=== PATIENT | female | born 1980 | race Caucasian/White ===

== ENCOUNTER 2021-02-02 15:45 | Outpatient (REF) | payer OTHER, SELFPAY ==
--- NOTE | ~2021-02-02 | XR_ITS ---
EXAMINATION: XR FOOT, RIGHT CLINICAL INFORMATION: Foot pain COMPARISON: None TECHNIQUE: 3 views of the right foot. FINDINGS: Bones have normal alignment. No fracture or subluxation. Moderate-sized plantar calcaneal enthesophyte. Small osteophytes at mildly degenerated second, third and fourth tarsometatarsal joints. Also, there appears to be subchondral sclerosis and subchondral cystic change at the second tarsometatarsal joint. 15 degrees of metatarsus primus varus and 45 degrees of hallux valgus deformity. Soft tissue prominence medial to the great toe metatarsal head with underlying subcortical cystic change of the metatarsal head. No osseous erosions. Mild deformity of the head of the proximal pharynx of the third toe might be sequela of remote minor trauma. XR/XR foot RT min 3V IMPRESSION: * No acute osseous injury in the right foot. 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 * Moderate-sized plantar calcaneal enthesophyte.
== END 2021-02-02 15:46 | disposition home or self-care (01) ==
LOC: HO.XRAY 15:45
PROVIDERS: PCP Internal Medicine; Visit Provider Internal Medicine
DX: M79.671 Pain in right foot (principal)
CPT/HCPCS: 73630

== ENCOUNTER 2021-02-05 12:15 | Outpatient (REF) | payer OTHER, SELFPAY ==
--- NOTE | ~2021-02-05 | MM_ITS ---
EXAMINATION: MM DIAGNOSTIC DIGITAL BREAST TOMOSYNTHESIS, BILATERAL Targeted right breast ultrasound CLINICAL INFORMATION: Right breast lump The lifetime risk of breast cancer based on the Tyrer-Cuzick Model is 13.9%. COMPARISON: Mammography: None TECHNIQUE: Digital breast tomosynthesis is performed in both the craniocaudal and mediolateral oblique views along with computer-aided detection (CAD). Synthesized 2D images are generated from the tomosynthesis. Targeted right breast ultrasound FINDINGS: There are scattered areas of fibroglandular density (ACR BI-RADS breast composition Category b). There are no significant masses, abnormal calcifications, or other abnormalities. Targeted ultrasound evaluation to region of palpable abnormality upper outer aspect of the right breast did not demonstrate any abnormal cystic or solid mass. No region of abnormal distal sound shadowing is present. Results are discussed with the patient at time of visit. MM/MM tomosynthesis diagnostic BI IMPRESSION: No specific mammographic or ultrasound findings to suggest malignancy. ASSESSMENT: BI-RADS 1: Negative RECOMMENDATION: Routine annual mammography screening due in 12 months. Clinical follow-up for palpable abnormality. This patient's information was entered into a reminder system with a target due date for their next mammogram.
--- NOTE | ~2021-02-05 | US_ITS ---
EXAMINATION: US DIAGNOSTIC ULTRASOUND BREAST, RIGHT CLINICAL INFORMATION: Palpable abnormality. COMPARISON: Mammography of same day. TECHNIQUE: Ultrasound of the breast is performed with real-time short scale imaging and color Doppler. FINDINGS: There is no focal suspicious finding. There is no solid mass, architectural abnormality, duct ectasia, or edema in the soft tissue planes. Results are discussed with the patient at time of visit. US/US breast RT limited IMPRESSION: No specific mammographic or ultrasound findings to suggest malignancy. ASSESSMENT: BI-RADS 1: Negative RECOMMENDATION: Routine annual mammography screening due in 12 months. This patient's information was entered into a reminder system with a target due date for their next mammogram.
== END 2021-02-05 12:16 | disposition home or self-care (01) ==
LOC: HO.MAMMO 12:15
PROVIDERS: PCP Internal Medicine; Visit Provider Internal Medicine
DX: N63.11 Unspecified lump in the right breast, upper outer quadrant (principal)
CPT/HCPCS: 76642; 77062; 77066

== ENCOUNTER 2024-05-14 08:10 | Outpatient (AMB) | payer OTHER, SELFPAY ==
--- OUTSIDE RECORDS SUMMARY | 2024-05-14 08:14 | XMS_ITS ---
Author Organization [facility] Address [address] [place] [id number] Care Team Providers Care Registered Vascular Technologist (Rvt) Name Role Phone [facility] Primary Care Provider [phone] ALLERGIES Allergen (clinical drug ingredient) Drug/Non Drug Allergy documented on EMR Reaction Allergy Type Onset Date Status Seasonal (uncoded) Cold Like Symptoms Allergy Active REASON FOR VISIT f/u meds, labs SOCIAL HISTORY Tobacco Use: Social History Observation Description Date Details (start date - stop date) Former Smoker 05/15/2007 - 05/15/2008 Sex Assigned At : Social History Observation Description Sex Assigned At Unknown Tobacco Use/Smoking Question Answer Notes Tobacco use: former smoker When did you start smoking? 05/15/2007 When did you stop smoking? 05/15/2008 How long has it been since you last smoked? > 10 years Additional Findings: Tobacco Non-User Ex-light c igarette smoker (1-9/day) Section Notes: Lives in [place] with [place], her EX and his mother. Encounters Encounter Location Date Provider Diagnosis [address] [id number] 03/19/2024 [facility] PLAN OF TREATMENT Next Appt Details Provider Name:SOU[facility] Hardin, 05/23/2024 08:45:00 AM, [address] [place] [address] [place], [phone], Provider Name:SOU[facility] Hardin, 07/03/2024 08:45:00 AM, [address] [place] [address] [place], [phone], Progress Notes * NISSA MCCARTHY: [birth year] (43 yo F)Acc No.[id number]:03/19/2024 Progress Note Patient:??BASIL MCCARTHY Provider:??South Calderon DNP :1980?Age:43 Y?Sex:Fe male Date:03/19/2024 Phone: Address:[id number] Subjective: * Chief Complaints: * ?1. F/u meds, labs. * HPI: ?Patient Care Team:?Tool Room Attendant:??[facility], Randall Hinds.? Providers/Specialists: Dentist - [facility] in [place]. * Medical History:??Hay fever, Anxiety, Chicken pox as a child, Depression, Fractured left ankle, GERD, Migraine headaches, Pneumonia, possible Thyroid issues. * Manager Monitoring History:?Menstrual history: ?LMP:??08/26/2023 ?Age of Menarche:??12 ?Periods :??every month, normal blood loss, lasts 4 days.?Last pap smear date??2011 neg per pt- due and obtained today 08/12/2023.?Last mammogram date??2020 neg per pt [facility]- referral sent.?? * OB History:? History:?Total pregnancies:??1 ?Total living children??1.?? * Surgical History:?? 2011, tonsillectomy 1986. * Family History:??Father: ali ve, hypertension, , type 2 diabetes mellitus, melanoma.??Mother: alive, type 2 diabetes mellitus.??Paternal Grandfather: , [place].??Paternal Grandmother: , [place].??Maternal Grandfather: 86 yrs, Alzheimer's dementia, melanoma.??Maternal Grandmother: 93 yrs, hypertension, , type 2 diabetes mellitus, colon cancer.?? * Social History:?Tobacco Use:?Tobacco Use/Smoking?Tobacco use:??former smoker ?When did you start smoking???05/15/2007 ?When did you stop smoking???05/15/2008 ?How long has it been since you last smoked???> 10 years ?Additional Findings: Tobacco Non-User??Ex-light cigarette smoker (1-9/day) ?Drugs/Alcohol:?Drugs?Have you used drugs other than those for medical reasons in the past 12 months???No ?Do you smoke marijuana?: Admits, vape and edibles. ?Do you drink alcohol?: Socially. ?Lives in [place] with Daughter, her EX and his mother. * Allergies:??Seasonal: Cold L chet Symptoms - Allergy. Objective: Assessment: Plan: * Treatment: * Preventive Medicine:?Last CPE: 08/02/2023 @ [facility] Colonoscopy: 2013 [facility] had fissures repaired Endoscopy: No Covid Vac: Yes Boosters No Flu Vac: No. * Billing Information: * Visit Code:?? * Procedure Codes:?? * Sign off status: Pending * Provider:??South Calderon DNP Date:??1 05/19/2023 History and Physical Notes * HPI (History of Present Illness) Category Sub-Category Detail Notes Category Not es Patient Care Team Tool Room Attendant: [facility] Providers/Special ists: Dentist - [facility] [place]
--- OUTSIDE RECORDS SUMMARY | 2024-05-14 08:14 | XMS_ITS | Patient Health Record ---
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 Name Role Phone PHYLICIA CALDERON Primary Care Provider ALLERGIES Allergen (clinical drug ingredient) Drug/Non Drug Allergy documented on EMR Reaction Allergy Type Onset Date Status Seasonal (uncoded) Cold Like Symptoms Allergy Active RESULTS Component Value Reference Range Notes CBC (COMPLETE BLOOD COUNT) W ITH DIFF Reviewed date:06/20/2023 03:08:15 PM Interpretation: Performing Lab:Testing performed or reported by [facility], a Service of [facility], [address] [place] [address] Keith Buck MD, E Mail System Administrator IA# [id number] Notes/Report: WBC 5.5 (4.0-11.0) K/MM3 RBC 4.27 (4.20-5.40) M/MM3 HGB 12.6 (11.7-15.5) GM/DL HCT 36.6 (35.7-45.8) % MCV 85.7 (80.0-100.0) FL MCH 29.5 (27.0-34.0) PG MCHC 34.4 (33.0-37.0) g/dL PLT 258 (150-460) K/MM3 RDW-SD 41.5 (<47.0) FL MPV 10.2 (9.4-12.4) FL AUTOMATED NRBC 0.0 ABS. NRBC 0.0 NEUT # 3.7 (1.3-7.0) K/MM3 LYMPH # 1.2 (0.8-3.1) K/MM3 MONO# 0.4 (0.4-0.9) K/MM3 EO # 0.2 (0.0-0.4) K/MM3 BASO # 0.0 (0.0-0.1) K/MM3 ABS. IMM GRAN 0.0 NEUT 66.6 (44-76) % LYMPH 22.5 (15-43) % MONOCYTE 7.1 (4.5-10.5) % EO 2.7 (0-6) % BASO 0.7 (0-2) % IMM GRAN 0.4 T3, REVERSE Reviewed date:06/25/2023 10:23:16 AM Interpretation: Performing Lab:Testing performed or reported by [facility], a Service of [facility], [address] [place] [id number] Keith Buck MD, E Mail System Administrator CLIA# [id number] Notes/Report: REVERSE T3 18.1 Reference range: 9.2 to 24.1 Unit: ng/dL (NOTE) This test was developed and its performance characteristics determined by [facility]. It has not been cleared or approved by the Food and Drug Administration. Test performed at [address] [address] THYROID PANEL Reviewed date:06/21/2023 01:16:50 PM Interpretation: Performing Lab:Testing performed or reported by [facility], a Service of [facility], [address] [place] [id number] Keith Buck MD, E Mail System Administrator IA# [id number] Notes/Report: FREE T4 1.42 (0.70-1.80) NG/DL TSH 3.02 (0.4-4.2) uIU/mL THINPREP TIS PAP W/REFL HPV mRNA E6/E7 (26344) Reviewed date:08/07/2023 01:29:16 PM Interpretation: Performing Lab:[facility], [facility] [address], [address] [place], [place] [id number] Fabian Marcus MD Notes/Report: NON-FASTING CLINICAL INFORMATION: None g iven LMP: 07/12/2023 PREV. PAP: 2012 PREV. BX: N/A SOURCE: Cervix STATEMENT OF ADEQUACY: Satisfactory for evaluation. Endocervical/transformation zone component absent. INTERPRETATION/RESULT: Cytology Results: Negative for intraepithelial lesion or malignancy. COMMENT: This Pap test has been evaluated with computer assisted technology. WAIST PRESSER: STEPH CASTANO(ASCP) CT screening location: [facility], [place] [address] Slide preparation performed at: [facility], [address] [place] [id number] CLIA No. [id number] COMMENT EXPLANATORY NOTE: The Pap is a screening test for cervical cancer. It is not a diagnostic test and is subject to false negative and false positive results. It is most reliable when a satisfactory sample, regularly obtained, is submitted with relevant clinical findings and history, and when the Pap result is evaluated along with historic and current clinical information. THYROID PEROXIDASE AND THYRO GLOBULIN ANTIBODIES (7260) Reviewed date:02/15/2024 09:18:55 AM Interpretation: Performing Lab:JOSE2, [facility] Sjloorme[address] Stanley StreetMA[address] Thea Gibbs Notes/Report: NON-FASTING; NON-FASTING; NON-FASTING; NON-FASTING; NON-FAST FASTING:YES FASTING: YES THYROGLOBULIN ANTIBODIES 1 < or = 1 IU/mL THYROID PEROXIDASE ANTIBODIES 278 <9 IU/mL THYROID PANEL WITH TSH (7444 ) Reviewed date:02/14/2024 08:08:16 AM Interpretation: Performing Lab:NATALIIA, [facility] Pompurjv[address] Thea Gibbs Notes/Report: NON-FASTING; NON-FASTING; NON-FASTING; NON-FASTING; NON-FAST FASTING:YES FASTING: YES T3 UPTAKE 30 22-35 % T4 (THYROXINE), TOTAL 7.8 5.1-11.9 mcg/dL FREE T4 INDEX (T7) 2.3 1.4-3.8 TSH 5.20 Reference Range > or = 20 Years 0.40-4.50 Ranges First trimester 0.26-2.66 Second trimester 0.55-2.73 Third trimester 0.43-2.91 CARDIO IQ(R) LIPID PANEL (91 716) Reviewed date:02/26/2024 04:36:13 PM Interpretation: Performing Lab:Jonas [facility] [place] [address], [address] [place], [place] [address]DbfevpdctIF[address] Marino Narvaez PhD,[facility] Notes/Report: NON-FASTING; NON-FASTING; NON-FASTING; NON-FASTING; NON-FAST FASTING:YES FASTING: YES CHOLESTEROL, TOTAL 163 <200 mg/dL HDL CHOLESTEROL 72 >49 mg/dL TRIGLYCERIDES 58 <150 mg/dL LDL-CHOLESTEROL 78 <100 mg/dL (calc) Desirable range <100 mg/dL for primary prevention; <70 mg/dL for patients with CHD or diabetic patients with >= 2 CHD risk factors. LDL-C is now calculated using the Nilton-Sosa calculation, which is a validated novel method providing better accuracy than the Friedewald equation in the estimation of LDL-C. Nilton SS et al. EMELIA. 2013;310(19): 0961-7028 (http://education.[employer].com/faq/QEA199) LDL-C is now calculated using the Nilton-Sosa calculation, which is a validated novel method providing better accuracy than the Friedewald equation in the estimation of LDL-C. Nilton SS et al. EMELIA. 2013;310(19): 1212-7591 (http://education.[employer]/faq/REF317) CHOL/HDLC RATIO 2.3 <5.0 calc NON HDL CHOLESTEROL 91 <130 mg/dL (calc) For patients with diabetes plus 1 major ASCVD risk factor, treating to a non-HDL-C goal of <100 mg/dL (LDL-C of <70 mg/dL) is considered a therapeutic option. For patients with diabetes plus 1 major ASCVD risk factor, treating to a non-HDL-C goal of <100 mg/dL (LDL-C of <70 mg/dL) is considered a therapeutic option. IRON, TIBC AND FERRITIN COLLEEN Hillman (5616) Reviewed date:02/14/2024 08:08:16 AM Interpretation: Performing Lab:NL2, [facility] [address] [place], [place] [id number] Thea Gibbs Notes/Report: NON-FASTING; NON-FASTING; NON-FASTING; NON-FASTING; NON-FAST FASTING:YES FASTING: YES IRON, TOTAL 62 40-190 mcg/dL IRON BINDING CAPACITY 347 250-450 mcg/dL (jae c) % SATURATION 18 16-45 % (calc) FERRITIN 29 16-232 ng/mL ALBUMIN, RANDOM URINE W/CREA EMMA (6517) Reviewed date:02/15/2024 09:18:55 AM Interpretation: Performing Lab:NL2, [facility] Hqpqihxp[address] Thea Gibbs Notes/Report: NON-FASTING; NON-FASTING; NON-FASTING; NON-FASTING; NON-FAST FASTING:YES FASTING: YES CREATININE, RANDOM URINE 115 20-275 mg/dL ALBUMIN, URINE 0.3 See Note: mg/dL Reference Range: Reference Range Not established ALBUMIN/CREATININE RATIO, RANDOM URINE 3 <30 mg/g creat The ADA defines abnormalities in albumin excretion as follows: Albuminuria Category Result (mg/g creatinine) Normal to Mildly increased <30 Moderately increased 30-299 Severely increased > OR = 300 The ADA recommends that at least two of three specimens collected within a 3-6 month period be abnormal before considering a patient to be within a diagnostic category. [facility] Kady ([address]) Reviewed date:02/14/2024 08:08:16 AM Interpretation: Performing Lab:2, [facility] Thea Gibbs Notes/Report: NON-FASTING; NON-FASTING; NON-FASTING; NON-FASTING; NON-FAST FASTING:YES FASTING: YES GLUCOSE 91 65-99 mg/dL Fasting reference interval UREA NITROGEN (BUN) 16 7-25 mg/dL CREATININE 0.76 0.50-0.99 mg/dL EGFR 100 > OR = 60 mL/min/1.73m2 BUN/CREATININE RATIO SEE NOTE: 6-22 (calc) Not Reported: BUN and Creatinine are within reference range. SODIUM 136 135-146 mmol/L POTASSIUM 4.0 3.5-5.3 mmol/L CHLORIDE 101 98-110 mmol/L CARBON DIOXIDE 26 20-32 mmol/L CALCIUM 8.9 8.6-10.2 mg/dL PROTEIN, TOTAL 6.5 6.1-8.1 g/dL ALBUMIN 4.4 3.6-5.1 g/dL GLOBULIN 2.1 1.9-3.7 g/dL (calc) ALBUMIN/GLOBULIN RATIO 2.1 1.0-2.5 (calc) BILIRUBIN, TOTAL 0.4 0.2-1.2 mg/dL ALKALINE PHOSPHATASE 95 31-125 U/L AST 10 10-30 U/L ALT 10 6-29 U/L CARDIO IQ(R) DIRECT LDL (917 23) Reviewed date:02/26/2024 04:36:13 PM Interpretation: Performing Lab:Jonas, to-BBB.-[place] [facility], [address], CiiygsyjqBP[address] Marino Narvaez PhD,[facility] Notes/Report: NON-FASTING; NON-FASTING; NON-FASTING; NON-FASTING; NON-FAST FASTING:YES FASTING: YES DIRECT LDL 92 <100 mg/dL Desirable range <100 mg/dL for primary prevention; <70 mg/dL for patients with CHD or diabetic patients with >= 2 CHD risk factors. CARDIO IQ(R) LIPOPROTEIN (a) (81383) Reviewed date:02/26/2024 04:36:13 PM Interpretation: Performing Lab:Jonas, to-BBB.-[facility], [address], ItbujqbkhVY[address] Marino Narvaez PhD,[facility] Notes/Report: NON-FASTING; NON-FASTING; NON-FASTING; NON-FASTING; NON-FAST FASTING:YES FASTING: YES LIPOPROTEIN (a) <10 <75 nmol/L Risk: Optimal <75 nmol/L; Moderate 75-125 nmol/L; High >125 nmol/L. Cardiovascular event risk category cut points (optimal, moderate, high) are based on Serge Saunders [facility] 2017;69:692-711. CBC (INCLUDES DIFF/PLT) (639 9) Reviewed date:02/14/2024 08:08:16 AM Interpretation: Performing Lab:NL2, [facility] Y[address]iewby[address] [facility] Thea Gibbs Notes/Report: NON-FASTING; NON-FASTING; NON-FASTING; NON-FASTING; NON-FAST FASTING:YES FASTING: YES WHITE BLOOD CELL COUNT 6.5 3.8-10.8 Thousand/ uL RED BLOOD CELL COUNT 4.35 3.80-5.10 Million/uL HEMOGLOBIN 13.4 11.7-15.5 g/dL HEMATOCRIT 39.3 35.0-45.0 % MCV 90.3 80.0-100.0 fL MCH 30.8 27.0-33.0 pg MCHC 34.1 32.0-36.0 g/dL For adults, a slight decrease in the calculated MCHC value (in the range of 30 to 32 g/dL) is most likely not clinically significant; however, it should be interpreted with caution in correlation with other red cell parameters and the patient's clinical condition. RDW 13.0 11.0-15.0 % PLATELET COUNT 271 140-400 Thousand/uL MPV 10.5 7.5-12.5 fL ABSOLUTE NEUTROPHILS [phone] cells/uL ABSOLUTE LYMPHOCYTES 4977 682-2590 cells/uL ABSOLUTE MONOCYTES 371 200-950 cells/uL ABSOLUTE EOSINOPHILS 130 15-500 cells/uL ABSOLUTE BASOPHILS 59 0-200 cells/uL NEUTROPHILS 69.1 LYMPHOCYTES 22.3 MONOCYTES 5.7 EOSINOPHILS 2.0 BASOPHILS 0.9 URINALYSIS, COMPLETE (5463) Reviewed date:02/14/2024 08:08:16 AM Interpretation: Performing Lab:NL2, [facility] Lahuhxxq[address] Thea Gibbs Notes/Report: NON-FASTING; NON-FASTING; NON-FASTING; NON-FASTING; NON-FAST FASTING:YES FASTING: YES COLOR YELLOW YELLOW APPEARANCE CLEAR CLEAR SPECIFIC GRAVITY 1.020 1.001-1.035 PH 6.5 5.0-8.0 GLUCOSE NEGATIVE NEGATIVE BILIRUBIN NEGATIVE NEGATIVE KETONES NEGATIVE NEGATIVE OCCULT BLOOD NEGATIVE NEGATIVE PROTEIN NEGATIVE NEGATIVE NITRITE NEGATIVE NEGATIVE LEUKOCYTE ESTERASE NEGATIVE NEGATIVE WBC NONE SEEN < OR = 5 /HPF RBC NONE SEEN < OR = 2 /HPF SQUAMOUS EPITHELIAL CELLS 0-5 < OR = 5 /HPF BACTERIA NONE SEEN NONE SEEN /HPF HYALINE CAST NONE SEEN NONE SEEN /LPF NOTE This urine was analyzed for the presence of WBC, RBC, bacteria, casts, and other formed elements. Only those elements seen were reported. CARDIO IQ(R) HS CRP (92039) Reviewed date:02/26/2024 04:36:13 PM Interpretation: Performing Lab:Jonas, [facility] [facility], [address]Prem[facility] HealthWsfvvcneeNI[address] Marino Narvaez PhD,[facility] Notes/Report: NON-FASTING; NON-FASTING; NON-FASTING; NON-FASTING; NON-FAST FASTING:YES FASTING: YES HS CRP 10.4 <1.0 mg/L Reference Range: Optimal <1.0 mg/L, according to Karri STRONG et al. Endocr Pract.2017;23(Suppl 2):1-87. The AHA/CDC Guidelines recommend hs-CRP ranges for identifying Relative Cardiovascular Risk in patients ages >17 years: <1.0 mg/L Lower Relative Cardiovascular Risk; 1.0-3.0 mg/L Average Relative Cardiovascular Risk; 3.1-10.0 mg/L Higher Relative Cardiovascular Risk. If result is between 3.1 and 10.0 mg/L, consider retesting in 1-2 weeks to exclude a benign transient elevation secondary to infection or inflammation from the baseline CRP value. Persistent elevations of >10.0 mg/L upon retesting may be associated with infection and inflammation. The AHA/CDC recommendations are based on Lou Dong, Harjeet LOWE, et al. Markers of inflammation and cardiovascular disease: application to clinical and public health practice: A statement for healthcare professionals from the Centers for Disease Control and Prevention and the [place] Heart Association. Circulation 2003; 107(3): 499-511. For ages >17 Years: hs-CRP mg/L Risk According to AHA/CDC Guidelines <1.0 Lower relative cardiovascular risk. 1.0-3.0 Average relative cardiovascular risk. 3.1-10.0 Higher relative cardiovascular risk. Consider retesting in 1 to 2 weeks to exclude a benign transient elevation in the baseline CRP value secondary to infection or inflammation. >10.0 Persistent elevation, upon retesting, may be associated with infection and inflammation. Lou Dong, Harjeet LOWE, et al. Markers of inflammation and cardiovascular disease: application to clinical and public health practice: A statement for healthcare professionals from the Centers for Disease Control and Prevention and the [place] Heart Association. Circulation 2003; 107(3): 499-511. CARDIO IQ(R) HEMOGLOBIN A1c (75774) Reviewed date:02/26/2024 04:36:13 PM Interpretation: Performing Lab:Jonas, [facility] [place] [address], [address], [id number] Marino Narvaez PhD,[facility] Notes/Report: NON-FASTING; NON-FASTING; NON-FASTING; NON-FASTING; NON-FAST FASTING:YES FASTING: YES HEMOGLOBIN A1c 4.7 <5.7 % For the purpose of screening for the presence of diabetes: <5.7% is consistent with the absence of diabetes; 5.7-6.4% is consistent with increased risk for diabetes (prediabetes); >= 6.5% is consistent with diabetes. This assay result is consistent with a decreased risk of diabetes. Currently, no consensus exists regarding use of hemoglobin A1c for diagnosis of diabetes in children. According to [place] Diabetes Association (ADA) guidelines, hemoglobin A1c <7.0% represents optimal control in non- diabetic patients. Different metrics may apply to specific patient populations. Standards of Medical Care in Diabetes (ADA). This test was performed on the Akilah erwin c503 platform. Effective 07/18/2023, a change in test platforms from the [place] to the Akilah erwin c503 may have shifted HbA1c results compared to historical results. Based on laboratory validation testing conducted at [facility], the Akilah platform relative to the Torres platform had an average increase in HbA1c value of <=0.3%. This difference is within accepted variability established by the National Glycohemoglobin Standardization Program. Note that not all individuals will have had a shift in their results and direct comparisons between historical and current results for testing conducted on different platforms is not recommended. CARDIO IQ(R) APOLIPOPROTEIN EVAL (16665) Reviewed date:02/26/2024 04:36:13 PM Interpretation: Performing Lab:Jonas, [place] [facility], [address], NcmfcvvvgTC[address] Marino Narvaez PhD,[facility] Notes/Report: NON-FASTING; NON-FASTING; NON-FASTING; NON-FASTING; NON-FAST FASTING:YES FASTING: YES APOLIPOPROTEIN A1 145 >124 mg/dL Risk, Male: Optimal >= 115 mg/dL; High < 115 mg/dL; Risk, Female: Optimal >= 125 mg/dL; High <125 mg/dL; Cardiovascular event risk category cut points (optimal, high) are based on the AMORIS study Terrence Moore et al. J Stars Specialist Med. 2004;255:188-205. APOLIPOPROTEIN B 72 <90 mg/dL Risk: Optimal <90 mg/dL; Moderate 90-119 mg/dL; High >= 120 mg/dL; Cardiovascular event risk category cut points (optimal, moderate, high) are based on National Lipid Association recommendations- Tomlin TA et al. J of Clin Lipid. 2015; 9: 129-169 and Karri PS et al. Endocr Pract. 2017;23(Suppl 2):1-87. APOLIPOPROTEIN B/A1 RATIO 0.50 <0.63 Risk, Male: Optimal <0.77 mg/dL; Moderate 0.77-0.95 mg/dL; High >0.95 mg/dL; Risk, Female: Optimal <0.63 mg/dL; Moderate 0.63-0.78 mg/dL; High >0.78 mg/dL. Cardiovascular event risk category cut points (optimal, moderate, high) are based on the AMORIS study, Chance G et al. J Stars Specialist Med. 2004;255:188-205. CARDIO IQ(R) INSULIN (18314) Reviewed date:02/26/2024 04:36:13 PM Interpretation: Performing Lab:Jonas [place] [facility].-[address], [address] [address]NzrbpnjfnDA[address] Marino Narvaez PhD,[facility] Notes/Report: NON-FASTING; NON-FASTING; NON-FASTING; NON-FASTING; NON-FAST FASTING:YES FASTING: YES INSULIN 13.3 <18.5 uIU/mL VITAMIN B12/FOLATE, SERUM PA LAURA (7065) Reviewed date:02/14/2024 08:08:16 AM Interpretation: Performing Lab:NATALIIA, [facility] [address] [place], [place] [address] Thea Gibbs Notes/Report: NON-FASTING; NON-FASTING; NON-FASTING; NON-FASTING; NON-FAST FASTING:YES FASTING: YES VITAMIN B12 125 076-1572 pg/mL FOLATE, SERUM 13.5 Reference Range Low: <3.4 Borderline: 3.4-5.4 Normal: >5.4 CARDIO IQ(R) VITAMIN D, 25 H YDROXY (80081) Reviewed date:02/26/2024 04:36:13 PM Interpretation: Performing Lab:RIYA [facility]/Marco Antonio Dinero [id number] [facility] , [id number] Selvin Casarez M.D.,PhD Notes/Report: NON-FASTING; NON-FASTING; NON-FASTING; NON-FASTING; NON-FAST FASTING:YES FASTING: YES VITAMIN D, 25-OH, TOTAL 32 30-100 ng/mL Vitamin D, 25-Hydroxy reports concentrations of two common forms, 25-OHD2 and 25-OHD3. 25-OHD3 indicates both endogenous production and supplementation. 25-OHD2 is an indicator of exogenous sources such as diet or supplementation. Therapy is based on measurement of Total 25-OHD, with levels <20 ng/mL indicative of Vitamin D deficiency, while levels between 20 ng/mL and 30 ng/mL suggest insufficiency. Optimal levels are > or = 30 ng/mL. For additional information, please refer to http://education.[employer]/faq/XDH295 (This link is being provided for informational/ educational purposes only.) VITAMIN D, 25-OH, D3 32 This test was developed and its analytical performance characteristics have been determined by [facility] [place], [place]. It has not been cleared or approved by the U.S. Food and Drug Administration. This assay has been validated pursuant to the CLIA regulations and is used for clinical purposes. VITAMIN D, 25-OH, D2 <4 This test was developed and its analytical performance characteristics have been determined by [facility] [place], [place]. It has not been cleared or approved by the U.S. Food and Drug Administration. This assay has been validated pursuant to the CLIA regulations and is used for clinical purposes. METHYLMALONIC ACID (15420) Reviewed date:02/19/2024 08:19:31 AM Interpretation: Performing Lab:RIYA [facility] [id number] [address], [id number] Selvin Casarez M.D.,PhD Notes/Report: NON-FASTING; NON-FASTING; NON-FASTING; NON-FASTING; NON-FAST FASTING:YES FASTING: YES METHYLMALONIC ACID 137 55-335 nmol/L Serum methylmalonic acid (MMA) levels are used to diagnose and monitor several rare inborn errors of metabolism, including methylmalonic aciduria. The enzymatic conversion of MMA to succinic acid requires vitamin B12 (adenosyl-cobalamin) as a cofactor. Serum MMA levels are also used for assessing functional vitamin B12 deficiency. Vitamin B12 is essential for neurodevelopment, particularly early in . Undiagnosed maternal vitamin B12 deficiency may be associated with adverse / outcomes, such as neural tube defects and intrauterine growth restriction. [facility] utilized Multi-Modal Decomposition (MMD) analysis to establish first and second trimester- specific MMA reference intervals in , as given below: MMA, First trimester (<13 wks gestation): 58-167 nmol/L MMA, Second trimester (13-23 wks gestation): 63-241 nmol/L This test was developed and its analytical performance characteristics have been determined by [facility]. It has not been cleared or approved by the FDA. This assay has been validated pursuant to the CLIA regulations and is used for clinical purposes. CARDIO IQ(R) FIBRINOGEN ANTI GEN, NEPHELOMETRY (35073) Reviewed date:02/26/2024 04:36:13 PM Interpretation: Performing Lab:[place], [place] [facility] [facility], [address]Premier HealthVwsuyywukFJ[address] Marino Narvaez PhD,[facility] Notes/Report: NON-FASTING; NON-FASTING; NON-FASTING; NON-FASTING; NON-FAST FASTING:YES FASTING: YES FIBRINOGEN ANTIGEN, NEPHELOMETRY 377 180-350 mg/dL Risk: Optimal <350 mg/dL; High >=350 mg/dL. Reference Range: 180-350 mg/dL. Adult cardiovascular event risk category cut points (optimal, moderate, high) are based on Siemens BN II and BN ProSpec(TM) System package insert. T3 REVERSE, LC/MS/MS (26329) Reviewed date:02/26/2024 04:36:13 PM Interpretation: Performing Lab:Rishabh RITTER/[facility] [id number] [address], KaejeiknpDS[address] Selvin Casarez M.D.,PhD Notes/Report: NON-FASTING; NON-FASTING; NON-FASTING; NON-FASTING; NON-FAST FASTING:YES FASTING: YES T3 REVERSE, LC/MS/MS 14 8-25 ng/dL This test was developed and its analytical performance characteristics have been determined by [facility] [place], [place]. It has not been cleared or approved by the U.S. Food and Drug Administration. This assay has been validated pursuant to the CLIA regulations and is used for clinical purposes. REASON FOR REFERRAL Reason please see order for US in DOS 07/04, thank you! Does not matter where Diagnosis 1 Acute pain of left k nee (M25.562) Referral Organization [facility] Referring Provider First Name PHYLICIA Referring Provider Last Name [place] Referring Provider Speciality Nurse Lola jaime Referred Organization [facility] Referred Address [address], [place],[id number],[place] Referred Provider Specialty Radiology General Notes Hayley Diaz 07/07 02:32:50 PM >US scheduled for 07/11/23 @ 12:45 at [facility] ([facility] Pt called and notified. Order faxed to [phone] Referral Priority Routine Reason Please refer to KAYLYN , does have a cyst and may need to be drained, see US report to attach. Thank you! Please refer to KAYLYN Graf will not see her (see me for more info) Diagnosis 1 Patellar tendinitis, left knee (M76.52) Referral Organization [facility] Referring Provider First Name PHYLICIA Referring Provider Last Name [place] Referring Provider Speciality Nurse Lola jaime Referred Organization [facility] Referred Address [address], [place],[id number],[place] Referred Provider Specialty Orthopedic S urgery General Notes MIN ESPARZA 0 07/24/2023 11:09:21 AM >appt request, demographics, referral, office note and ultrasound results faxwed to KAYLYN [phone], MIN ESPARZA 09/01/2023 08:37:11 AM >KAYLYN response: patient needs to contact billing prior to being able to schedule an appt with them Referral Priority Urgent Reason Please see order for mammo in DOS 08/01 Diagnosis 1 Encounter for screen ing mammogram for breast cancer (Z12.31) Referral Organization [facility] Referring Provider First Name PHYLICIA Referring Provider Last Name [place] Referring Provider Speciality Nurse Lola jaime Referred Organization [facility] Referred Address [address] [facility] [place], [place],[id number],[place] Referred Provider Specialty [facility] General Notes ISAIASANNETTEMIN 0 08/03/2023 08:35:04 AM >demographics, insurance info, order and office note faxed to [facility] diagnostic testing [phone] Referral Priority Routine Reason Please refer to [facility] Diagnosis 1 Acute pain of left k nee (M25.562) [facility] Referring Provider First Name PHYLICIA Referring Provider Last Name MARYCRUZ Referring Provider Speciality Nurse Lola jaime Ref[facility] Referred Address [address] [place], [place] [address],[id number], Referred Provider Specialty Orthopedic S urgery General Notes ANNETTE ESPARZAAIL 1 06/08/2023 02:51:36 PM >demographics, insurance info, referral and office note faxed to [facility] Orthopedics Dept. [phone] Referral Priority Routine MEDICATIONS Medication SIG (Take, Route, Frequency, Duration) Notes Start Date End Date Status Levothyroxine Sodium 125 MCG 1 tablet in the morning on an empty stomach Orally Once a day for 90 days 03/26/2024 Active Vitamin D3 125 MCG (5000 UT) 1 capsule Orally Once a day Active Qulipta 60 MG 1 tablet Orally Once a day for 90 days Samples 09/22/2024 Active Wegovy 1 MG/0.5ML 0.5 mL Subcutaneous once every 7 days for 30 days 04/30/2024 05/30/2024 Active Saxenda 18 MG/3ML start with 0.6 mg/da y x 7 days, then increase dose by 0.6 mg/day every week until 3mg/day is reached Subcutaneous once daily in the morning on an empty stomach 06/05/2023 Not-Taking Saxenda 18 MG/3ML Subcutaneous 06/05/2023 Not-Taking Loratadine 10 MG 1 tablet Orally Once a day Not-Taking Ubrelvy 50 MG 1 tablet as needed, may take second dose at least 2 hours after first dose up to 4 tablets per day as needed Orally Once a day for 90 days Samples 09/22/2024 Active Wegovy 0.5 MG/0.5ML 0.5 mL Subcutaneous Active ZyrTEC Allergy 10 MG 1 tablet Orally Onc e a day Active Multi For Her Active Levothyroxine Sodium 100 MCG TAKE 1 TABLET BY MOUTH EVERY DAY IN THE MORNING ON EMPTY STOMACH FOR 90 DAYS for 90 Active Nurtec 75 MG 1 tablet on the tongue and allow to dissolve Orally Samples Not-Taking SOCIAL HISTORY Tobacco Use: Social History Observation [...] igarette smoker (1-9/day) Section Notes: Lives in [place] with Da ughter, her EX and his mother. Lives in [place] with Da ughter, her EX and his mother. Lives in [place] with Da ughter, her EX and his mother. Lives in [place] with Da ughter, her EX and his mother. Lives in [place] with Da ughter, her EX and his mother. Lives in [place] with Da ughter, her EX and his mother. Lives in [place] with Da ughter, her EX and his mother. Lives in [place] with Da ughter, her EX and his mother. Lives in [place] with Da ughter, her EX and his mother. Lives in [place] with Da ughter, her EX and his mother. Lives in [place] with Da ughter, her EX and his mother. Lives in [place] with Da ughter, her EX and his mother. Lives in [place] with Da ughter, her EX and his mother. Lives in [place] with Da ughter, her EX and his mother. PROBLEMS Problem Type ICD Code Onset Dates Problem Status W/U Status Risk SNOMED Code Notes Problem Morbid obesity (E66.01) Active confirmed Morbid obesity (867739859) Problem Migraine with aura and without status migrainosus, not intractable (G43.109) Active confirmed Migraine with aura (9059328) Problem Hypothyroidism (acquired) (E03.9) Active confirmed Hypothyroidism (19639053) VITAL SIGNS Heart Rate 68 /min 02/13/2024 Oximetry 98 % 02/13/2024 Height-cm 165.1 cm 03/26/2024 Blood pressure diastolic 82 mm Hg 02/13/2024 Weight-kg 145.65 kg 02/13/2024 Height 65 in 03/26/2024 Blood pressure systolic 126 mm Hg 02/13/2024 Weight 321.1 lbs 02/13/2024 BMI 53.43 kg/m2 02/13/2024 Encounters Encounter Location Date Provider Diagnosis [address] [id number] 03/14/20[address]ON [address] [id number] 03/19/[address] [id number] 06/05/2023 PHYLICIA CALDERON Morbid obesity E66.0 1 and Hypothyroidism (acquired) E03.[address] [id number] 06/26/2023 PHYLICIA CALDERON Hypothyroidism (acquired) E03.9 ; Morbid obesity E66.01 and Encounter to discuss test results Z71.[address] [id number] 07/04/2023 PHYLICIA CALDERON Acute pain of left knee M25.[address] [id number] 07/20/2023 PHYLICIA CALDERON Patellar tendinitis, left knee M76.[address] [id number] 08/02/2023 PHYLICIA CALDERON Encounter for genera l adult medical examination with abnormal findings Z00.01 ; Encounter for screening examination for mental health and behavioral disorders, unspecified Z13.30 ; Pap smear for cervical cancer screening Z12.4 ; Migraine with aura and without status migrainosus, not intractable G43.109 ; Hypothyroidism (acquired) E03.9 ; Morbid obesity E66.01 and Encounter for screening mammogram for breast cancer Z12.[address] [id number] 09/05/2023 PHYLICIA CALDERON Morbid obesity E66.0 1 ; Effusion, left knee M25.462 and Pain in right ankle and joints of right foot M25.[address] [id number] 02/13/2024 PHYLICIA CALDERON Hypothyroidism (acquired) E03.9 ; Migraine with aura and without status migrainosus, not intractable G43.109 ; Morbid obesity E66.01 and Acute pain of left knee M25.[address] [id number] 03/26/2024 PHYLICIA CALDERON Migraine with aura a nd without status migrainosus, not intractable G43.109 ; Morbid obesity E66.01 ; Hypothyroidism (acquired) E03.9 ; Acute pain of left knee M25.562 and Encounter to discuss test results Z71.[address] [id number] 02/13/2024 PHYLICIA MARYCRUZ Morbid obesity E66.0 1 ; Hypothyroidism (acquired) E03.9 ; Migraine with aura and without status migrainosus, not intractable G43.109 ; Acute pain of left knee M25.562 ; Effusion, left knee M25.462 ; Pain in right ankle and joints of right foot M25.571 and Abnormal results of function studies of other organs and systems R94.[address] [id number] 04/22/2024 PHYLICIA CALDERON ASSESSMENTS Encounter Date Diagnosis Assessment Notes Treatment Notes Treatment Clinical Notes Section Notes 06/05/2023 Morbid obesity (ICD-10 - E66.01) Discussed weight and it affect on health status Discussed dietary choices/nutrition ist referral Intermittent fasting Increase exercise as tolerated 06/05/2023 Hypothyroidism (acquired) (ICD-10 - E03.9) Due for labs, ordered today, will advise if need for dose change 06/26/2023 Morbid obesity (ICD-10 - E66.01) Still has not received saxenda, this has been quite the ordeal! We will continue to push through the red tape 06/26/2023 Hypothyroidism (acquired) (ICD-10 - E03.9) Continue meds as indicated, increased to 100 mcg for TSH of (3.02) Check thyroid panel yearly, sooner as indicated 07/04/2023 Acute pain of left knee (ICD-10 - M25.562) Patient presents with acute knee pain that began two weeks ago. Pain has gotten worse as of late. Plan to send patient full ultrasound imaging to rule out differential diagnose of something like bakers cyst. Follow up with patient in two weeks following ultrasound. Total time spent with patient 20 minutes which includes face to face visit, education and coordination of care. Curt Wilson BSN, [employer] student saw the patient and formulated the note under direct supervision of Dr. Phylicia Calderon, LUTHER. 07/20/2023 Patellar tendinitis, left knee (ICD-10 - M76.52) Patellar Tendinitis (Jumper's Knee): Exercises material was published, Tendon Injury (Tendinopathy): Care Instructions material was published 08/02/2023 Encounter for general adult medical examination with abnormal findings (ICD-10 - Z00.01) The exam today was without concern. We discussed short and long-term health goals. Reports having working CO2 and Smoke detectors. Encouraged to wear sunscreen. Reports wearing a seatbelt when driving or as a passenger. Encourage regular exercise of moderate intensity 30 min 5x/week. Pt reports intermittent fasting 12-14h. 08/02/2023 Encounter for screening examination for mental health and behavioral disorders, unspecified (ICD-10 - Z13.30) PHQ-9: 11 Moderate risk for major depressive disorder. Pt reports incresed stressors. Discussed mental health counseling and therapy or if pt prefers can complete here. 09/05/2023 Effusion, left knee (ICD-10 - M25.462) Patient is still waiting for an appointment with orthopedics for swelling in her left knee. We will plan to reach out to the office to speed up the process. In the meantime she was educated on pain prevention and management of symptoms till she gets her appointment. 09/05/2023 Morbid obesity (ICD-10 - E66.01) Patient has tried lifestyle changes to lose weight with no success. We will prescribe saxenda for weight loss support. She was educated on the medication and what to expect as far as side effects and benefits. She was alerted on appropriate times to call the office or urgent services such as if she were to have a reaction to the medication. We believe weight loss with be critical in assisting patient in injury rehabilitation and prevention due to her active lifestyle. Total time spent with patient 20 minutes which includes face to face visit, education and coordination of care. I, Curt Shalypin, BSN, [employer] student saw the patient and formulated the note under direct supervision of Dr. Phylicia Calderon, LUTHER. 02/13/2024 Migraine with aura and without status migrainosus, not intractable (ICD-10 - G43.109) [facility] will try quilipta and ubrelvy samples for the next month and f/u to determine if she is doing better on this regimen. 02/13/2024 Hypothyroidism (acquired) (ICD-10 - E03.9) Due for labs, will do today while in office 02/13/2024 Morbid obesity (ICD-10 - E66.01) 02/13/2024 Hypothyroidism (acquired) (ICD-10 - E03.9) 03/26/2024 Morbid obesity (ICD-10 - E66.01) Discussed weight and it affect on health status Discussed dietary choices/nutrition ist referral Intermittent fasting Increase exercise as tolerated 03/26/2024 Migraine with aura and without status migrainosus, not intractable (ICD-10 - G43.109) Condition is stable and well controlled on current treatment. No changes made, medication(s) refilled as indicated, doing really well with quilipta/ubrelvy! 03/26/2024 Hypothyroidism (acquired) (ICD-10 - E03.9) TSH still elevated mildly, we will increase dose to 125 mcg and repeat labs in 8 weeks prior to CPE already booked for 07/0902/13/2024 Migraine with aura and without status migrainosus, not intractable (ICD-10 - G43.109) 02/13/2024 Morbid obesity (ICD-10 - E66.01) Chronic and custodial concern, 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 She is active and plays sports year round. We had supply issues the last time we tried wegovy but now the drug is readily available and she would like to give it another try-I fully support this since she has been able to lose some weight with what we are doing for lifestyle/diet management. Samples given in office today and sent Rx for 0.5 mg of Wegovy. 09/05/2023 Pain in right ankle and joints of right foot (ICD-10 - M25.571) Patient reports right ankle pain. She does not recall a specific injury. She has a brace that she uses when leaving the home. She was educated on physcial therapy protocols to manage her ankle, including heat therapy, exercises and resources to find more information. Will follow up with patient at next visit to gauge therapeutic response to heat therapy and exercises. 08/02/2023 Pap smear for cervical cancer screening (ICD-10 - Z12.4) PAP obtained, f/u with results 06/26/2023 Encounter to discuss test results (ICD-10 - Z71.2) 02/13/2024 Acute pain of left knee (ICD-10 - M25.562) We had referred her to [facility] back in July-she has not been able to get an appointment. We will refer to [facility] for evaluation of her chronic left knee pain. 02/13/2024 Acute pain of left knee (ICD-10 - M25.562) 08/02/2023 Migraine with aura and without status migrainosus, not intractable (ICD-10 - G43.109) Given samples of Ubrelvy and Nurtec to trial. 4 week f/u to determine which she prefers. 03/26/2024 Acute pain of left knee (ICD-10 - M25.562) Referral initiated to [facility] per patient's choice 03/26/2024 Encounter to discuss test results (ICD-10 - Z71.2) All labs were reviewed and the results were explained to the patient in detail. Total time with patient >30 minutes which includes education and coordination of care. 02/13/2024 Effusion, left knee (ICD-10 - M25.462) 08/02/2023 Hypothyroidism (acquired) (ICD-10 - E03.9) Continue on medication, stable 08/02/2023 Morbid obesity (ICD-10 - E66.01) Pt intermittent fasting, will try sending Saxenda again to see if it is available for pt. 02/13/2024 Pain in right ankle and joints of right foot (ICD-10 - M25.571) 02/13/2024 Abnormal results of function studies of other organs and systems (ICD-10 - R94.8) 08/02/2023 Encounter for screening mammogram for breast cancer (ICD-10 - Z12.31) Due for mammogram (last 2020), referral placed 06/05/2023 Other Total time spen t with patient 32 minutes which includes face to face visit, education and coordination of care. 06/26/2023 Other Total time spen t with patient 20 minutes which includes face to face visit, education and coordination of care. 08/02/2023 Other Sharon Wilson, [place] ICER student saw the patient and formulated the note under direct supervision of Dr. Phylicia Calderon, LUTHER. 02/13/2024 Other Total time spen t with patient 45 minutes which includes face to face visit, education and coordination of care. 03/26/2024 Other Total time spen t with patient 34 minutes which includes face to face visit, education and coordination of care. PLAN OF TREATMENT Pending Test Test Name Order Date MAMMOGRAM, SCREENING 08/02/2023 Ultrasound : Lower Extremity, left 07/04 THYROID PANEL WITH TSH (7444) 03/26/2024 Next Appt Details Provider Name:PHYLICIA RUBIO Hardin, 05/23/2024 08:45:00 AM, [address] [place], [place] [address], [id number], Provider Name:PHYLICIA Hardin, 07/03/2024 08:45:00 AM, [address] [place], [place] [address], [id number], Insurance Providers Payer Name Payer Address Payer Phone Subscriber Number Group Number Insured Name Patient Relationship to Insured Coverage Start Date Coverage End Date [facility] [address] [address] [place] [phone] [id number] BASIL MCCARTHY Self - patient is the insured [facility] [address] [place] [address] [id number] BASIL MCCARTHY Self - patient is the insured MEDICAL (GENERAL) HISTORY Medical History History ICD Code hay fever anxiety chicken pox as a child depression fractured left ankle GERD migraine headaches pneumonia possible Thyroid issues Surgical History Surgery Date(Month/Year) 2012 tonsillectomy 1987
--- OUTSIDE RECORDS SUMMARY | 2024-05-14 08:14 | XMS_ITS ---
Author Organization [facility], [facility] Address [address], [place] [id number] Care Team Providers Care Button Sawyer Name Role Phone SOUTH CALDERON Primary Care Provider [phone] ALLERGIES Allergen (clinical drug ingredient) Drug/Non Drug Allergy documented on EMR Reaction Allergy Type Onset Date Status Seasonal (uncoded) Cold Like Symptoms Allergy Active REASON FOR REFERRAL Reason Please refer to [facility] Diagnosis 1 Acute pain of left k nee (M25.562) Referral Organization [facility] Referring Provider First Name SOUTH Referring Provider Last Name MARYCRUZ Referring Provider Speciality Nurse Prac titioner Referred Organization [facility], [facility] Referred Address [address], [id number], Referred Provider Specialty Orthopedic S urgery General Notes MIN ESPARZA 1 06/08/2023 02:51:36 PM >demographics, insurance info, referral and office note faxed to [facility] Orthopedics Dept. [phone] Referral Priority Routine REASON FOR VISIT f/u meds, labs MEDICATIONS Medication SIG (Take, Route, Frequency, Duration) Notes Start Date End Date Status Vitamin D3 125 MCG (5000 UT) 1 capsule Orally Once a day Active Wegovy 0.5 MG/0.5ML 0.5 mL Subcutaneous Active ZyrTEC Allergy 10 MG 1 tablet Orally Onc e a day Active Multi For Her Active Levothyroxine Sodium 100 MCG TAKE 1 TABLET BY MOUTH EVERY DAY IN THE MORNING ON EMPTY STOMACH FOR 90 DAYS for 90 Active Wegovy 1 MG/0.5ML 0.5 mL Subcutaneous once every 7 days for 30 days 03/26/2024 04/25/2024 Active Levothyroxine Sodium 125 MCG 1 tablet in the morning on an empty stomach Orally Once a day for 90 days 03/26/2024 Active Qulipta 60 MG 1 tablet Orally Once a day for 90 days Samples 09/22/2024 Active Loratadine 10 MG 1 tablet Orally Once a day Not-Taking Ubrelvy 50 MG 1 tablet as needed, may take second dose at least 2 hours after first dose up to 4 tablets per day as needed Orally Once a day for 90 days Samples 09/22/2024 Active Saxenda 18 MG/3ML start with 0.6 mg/da y x 7 days, then increase dose by 0.6 mg/day every week until 3mg/day is reached Subcutaneous once daily in the morning on an empty stomach 06/05/2023 Not-Taking Saxenda 18 MG/3ML Subcutaneous 06/05/2023 Not-Taking Nurtec 75 MG 1 tablet on the [...] igarette smoker (1-9/day) Section Notes: Lives in [place] with [place], her EX and his mother. VITAL SIGNS Height 65 in 03/26/2024 Height-cm 165.1 cm 03/26/2024 Encounters Encounter Location Date Provider Diagnosis [address] [id number] 03/26/2024 SOUTH CALDERON Migraine with aura a nd without status migrainosus, not intractable G43.109 ; Morbid obesity E66.01 ; Hypothyroidism (acquired) E03.9 ; Acute pain of left knee M25.562 and Encounter to discuss test results Z71.2 ASSESSMENTS Encounter Date Diagnosis Assessment Notes Treatment Notes Treatment Clinical Notes Section Notes 03/26/2024 Migraine with aura and without status migrainosus, not intractable (ICD-10 - G43.109) Condition is stable and well controlled on current treatment. No changes made, medication(s) refilled as indicated, doing really well with quilipta/ubrelvy ! 03/26/2024 Morbid obesity (ICD-10 - E66.01) Discussed weight and it affect on health status Discussed dietary choices/nutritio nist referral Intermittent fasting Increase exercise as tolerated 03/26/2024 Hypothyroidism (acquired) (ICD-10 - E03.9) TSH still elevated mildly, we will increase dose to 125 mcg and repeat labs in 8 weeks prior to CPE already booked for 07/0903/26/2024 Acute pain of left knee (ICD-10 - M25.562) Referral initiated to [facility] per patient's choice 03/26/2024 Encounter to discuss test results (ICD-10 - Z71.2) All labs were reviewed and the results were explained to the patient in detail. Total time with patient >30 minutes which includes education and coordination of care. 03/26/2024 Other Total time spen t with patient 34 minutes which includes face to face visit, education and coordination of care. PLAN OF TREATMENT Medication Medication Name Sig Start Date Stop Date Notes Wegovy 1 MG/0.5ML 0.5 mL Subcutaneous once every 7 days for 30 days 03/26/2024 04/25/2024 Levothyroxine Sodium 125 MCG 1 tablet in the morning on an empty stomach Orally Once a day for 90 days 03/26/2024 Qulipta 60 MG 1 tablet Orally Once a day for 90 days 09/22/2024 Samples Ubrelvy 50 MG 1 tablet as needed, may take second dose at least 2 hours after first dose up to 4 tablets per day as needed Orally Once a day for 90 days 09/22/2024 Samples Treatment Notes Assessment Notes Migraine with aura and witho ut status migrainosus, not intractable Condition is stable and well controlled on current treatment. No changes made, medication(s) refilled as indicated, doing really well with quilipta/ubrelvy! Morbid obesity Discussed weight and it affect on health status Discussed dietary choices/landscape crew member referral Intermittent fasting Increase exercise as tolerated Hypothyroidism (acquired) TSH still elev ated mildly, we will increase dose to 125 mcg and repeat labs in 8 weeks prior to CPE already booked for 07/09 Acute pain of left knee Referral initiat ed to [facility] per patient's choice Encounter to discuss test results All la bs were reviewed and the results were explained to the patient in detail. Total time with patient >30 minutes which includes education and coordination of care. Other Total time spent wit h patient 34 minutes which includes face to face visit, education and coordination of care. Pending Test Test Name Order Date THYROID PANEL WITH TSH (7444) 03/26/2024 Referrals Referral Date Details Please refer to [facility] , [address] [place], [place] [address], [phone], @[facility], Next Appt Details Follow Up: booked in Jun for CPE, Reason: Provider Name:SOUTH Hardin, 05/23/2024 08:45:00 AM, [address] [place], [place] [address], [phone], Provider Name:SOUTH Hardin, 07/03/2024 08:45:00 AM, [address] [place], [place] [address] [place], [phone], Progress Notes * BASIL MCCARTHYDOB: [birth year] (43 yo F)Acc No.[id number]:03/26/2024 Progress Note Patient:??SHARI BASIL Provider:??South Calderon DNP :1980?Age:43 Y?Sex:Fe male Date:03/26/2024 Phone: Address:[address] [place], [place] [phone] Subjective: * Chief Complaints: * ?F/u meds, labs * HPI: ?Patient Care Team:?Heating Technician:??[facility], Randall Warnerbradgate.? Providers/Specialists: Dentist - [facility] in [place]. ?Visit info:? Basil presents by video for a telehealth follow up to go over her most recent lab results and medication check in. Patient states that things were going well with both the Ubrelvy and Qulipta until she ran out of samples. Does not have a current weight as she does not have a scale. She feels as though she has had some weight loss as her clothes are fitting differently. ?New Patient Visit:? The patient consents to HIPAA compliant telehealth visit using a real time video platform within our EHR. The provider is located in the office and the patient is in their home for the duration of the visit. * ROS:?General / Constitutional:?Patient denies??change in appetite, fatigue, headache.?Allergy / Immunology:?Patient denies??congestion, cough, sneezing.?Ophthalmologic:?Patient denies??double vision, loss of vision.?ENT:?Patient denies??ear pain, hoarseness, nasal congestion, ringing in the ears, scratchy throat.?Respiratory:?Patient denies??chest pain, cough, shortness of breath, wheezing.?Cardiovascular:?Patient denies??chest pain, chest pain with exertion, difficulty laying flat, dyspnea on exertion.?Gastrointestinal:?Patient denies??abdominal pain, blood in stool, constipation, diarrhea, heartburn, nausea.?Musculoskeletal:?Patient denies??joint stiffness, leg swelling, muscle aches, neck pain.?Skin:?Patient denies??changing moles, dry skin.?Neurologic:?Patient denies??confusion, dizziness, headache, gait abnormality.?Psychiatric:?Patient denies??anxiety, loss of appetite, depressed mood.? * Medical History:?? * Opener [employer] History:?Menstrual history: ?LMP:??08/26/2023 ?Age of Menarche:??12 ?Periods :??every month, normal blood loss, lasts 4 days.?Last pap smear date??2011 neg per pt- due and obtained today 08/12/2023.?Last mammogram date??2020 neg per pt [facility]- referral sent.?? * OB History:? History:?Total pregnancies:??1 ?Total living children??1.?? * Surgical History:?? 2012tonsillectomy 1986 * Hospitalization/Major Diagno stic Procedure:?? * Family History:??Father: ali ve, hypertension, , [...] ?Do you drink alcohol?: Socially. ?Lives in [place] with Daughter, her EX and his mother. * Medications:??TakingWegovy 0 .5 MG/0.5ML Solution Auto-injector 0.5 mL Subcutaneous Ubrelvy 50 MG Tablet 1 tablet as needed, may take second dose at least 2 hours after first dose up to 4 tablets per day as needed Orally Once a day , Notes to Pharmacist: SamplesQulipta 60 MG Tablet 1 tablet Orally Once a day , Notes to Pharmacist: SamplesVitamin D3 125 MCG (5000 UT) Capsule 1 capsule Orally Once a day ZyrTEC Allergy 10 MG Tablet 1 tablet Orally Once a day Multi For Her Levothyroxine Sodium 100 MCG Tablet TAKE 1 TABLET BY MOUTH EVERY DAY IN THE MORNING ON EMPTY STOMACH FOR 90 DAYS Taking Wegovy 0.5 MG/0.5ML Solution Auto-injector 0.5 mL Subcutaneous Taking Ubrelvy 50 MG Tablet 1 tablet as needed, may take second dose at least 2 hours after first dose up to 4 tablets per day as needed Orally Once a day , Notes to Pharmacist: SamplesTaking Qulipta 60 MG Tablet 1 tablet Orally Once a day , Notes to Pharmacist: SamplesTaking Vitamin D3 125 MCG (5000 UT) Capsule 1 capsule Orally Once a day Taking ZyrTEC Allergy 10 MG Tablet 1 tablet Orally Once a day Taking Multi For Her Taking Levothyroxine Sodium 100 MCG Tablet TAKE 1 TABLET BY MOUTH EVERY DAY IN THE MORNING ON EMPTY STOMACH FOR 90 DAYS Not-TakingNurtec 75 MG Tablet Disintegrating 1 tablet on the tongue and allow to dissolve Orally , Notes to Pharmacist: SamplesSaxenda 18 MG/3ML Solution Pen-injector start with 0.6 mg/day x 7 days, then increase dose by 0.6 mg/day every week until 3mg/day is reached Subcutaneous once daily in the morning on an empty stomach Saxenda 18 MG/3ML Solution Pen-injector Subcutaneous Loratadine 10 MG Tablet 1 tablet Orally Once a day Medication List reviewed and reconciled with the patientNot-Taking Nurtec 75 MG Tablet Disintegrating 1 tablet on the tongue and allow to dissolve Orally , Notes to Pharmacist: SamplesNot-Taking Saxenda 18 MG/3ML Solution Pen-injector start with 0.6 mg/day x 7 days, then increase dose by 0.6 mg/day every week until 3mg/day is reached Subcutaneous once daily in the morning on an empty stomach Not-Taking Saxenda 18 MG/3ML Solution Pen-injector Subcutaneous Not-Taking Loratadine 10 MG Tablet 1 tablet Orally Once a day Medication List reviewed and reconciled with the patient * Allergies:??Seasonal: Cold L chet Symptoms - Allergy Objective: * Vitals:??BP: Not Taken - Tel [facility], Ht: 65 in, Ht-cm: 165.1 cm. * Examination: ?General Examination: ?General appearance:??voice is clear, no distress noted, speaking in full sentences with good judgement and no audible SOB.?Neurologic:??alert and oriented.?Psych:??alert and oriented x 3, with good judgement and insight, speech is clear and coherent, thought process is logical and goal directed without suidical ideation or delusions.? Assessment: * Assessment: 1.??Migraine with aura and w ithout status migrainosus, not intractable - G43.109 (Primary)??2.??Morbid obesity - E66.01??3.??Hypothyroidism (acquired) - E03.9??4.??Acute pain of left knee - M25.562??5.??Encounter to discuss test results - Z71.2?? Plan: * Treatment: 2.??Morbid obesity?? Start Wegovy Solution Auto-injector, 1 MG/0.5ML, 0.5 mL, Subcutaneous, once every 7 days, 30 days, 4, Refills 0.? Notes: Discussed weight and it affect on health status Discussed dietary choices/landscape crew member referral Intermittent fasting Increase exercise as tolerated? 3.??Hypothyroidism (acquired )?? Start Levothyroxine Sodium Tablet, 125 MCG, 1 tablet in the morning on an empty stomach, Orally, Once a day, 90 days, 90 Tablet, Refills 0.?LAB: THYROID PANEL WITH TSH (7801) Notes: TSH still elevated mildly, we will increase dose to 125 mcg and repeat labs in 8 weeks prior to CPE already booked for 07/09? 4.??Acute pain of left knee? ? Notes: Referral initiated to [facility] per patient's choice? Referral To:Orthopedic Surgery ?Reason:Please refer to [facility] 5.??Encounter to discuss manda t results?? Notes: All labs were reviewed and the results were explained to the patient in detail. Total time with patient >30 minutes which includes education and coordination of care. ? 6.??Others?? Notes: Total time spent with patient 34 minutes which includes face to face visit, education and coordination of care.? * Procedure Codes:?? * Preventive Medicine:?Last CPE: 08/02/2023 @ [facility] ?Colonoscopy: 2012 [facility] had fissures repaired ?Endoscopy: No ?Covid Vac: Yes Boosters No ?Flu Vac: No. * Follow Up:??booked in Jun fo r CPE * Billing Information: * Visit Code:?? 42991 Office Visit, Est Pt., Level 4. * Procedure Codes:?? * Sign off status: Completed true * Provider:??South Calderon DNP Date:??1 05/26/2023 History and Physical Notes * HPI (History of Present Illness) Category Sub-Category Detail Notes Category Not es Patient Care Team Heating Technician: [facility], Randall Adena Providers/Speciali sts: Dentist - [facility] in [place] Visit info Basil present s by video for a telehealth follow up to go over her most recent lab results and medication check in. Patient states that things were going well with both the Ubrelvy and Qulipta until she ran out of samples. Does not have a current weight as she does not have a scale. She feels as though she has had some weight loss as her clothes are fitting differently. New Patient Visit [facility] consents to HIPAA compliant telehealth visit using a real time video platform within our EHR. The provider is located in the office and the patient is in their home for the duration of the visit. Examination Category Sub-Category Detail Notes Category Not es General Examination General appearance: voice is clear, no distress noted, speaking in full sentences with good judgement and no audible SOB Neurologic: alert and oriented Psych: alert and oriented x 3, with good judgement and insight, speech is clear and coherent, thought process is logical and goal directed without suidical ideation or delusions Consultation Request Notes Referral Date Referring Provider Referred Provider Not es 03/26/2024 SOUTH CALDERON , Please refe r to [facility]
--- OUTSIDE RECORDS SUMMARY | 2024-05-14 08:14 | XMS_ITS ---
Author Organization [facility], [facility] Address [address] [place] [id number] Care Team Providers Care Trumpet Teacher Name Role Phone SOUTH JOEL Primary Care Provider [phone] REASON FOR VISIT RX dose MEDICATIONS Medication SIG (Take, Route, Fr equency, Duration) Notes Start Date End Date Status Wegovy 1 MG/0.5ML 0.5 mL Subcutaneous once every 7 days for 30 days 04/30/2024 05/30/2024 Active Encounters Encounter Location Date Provider Diagnosis [address] [id number] 04/22/2024 SOUTH JOEL PLAN OF TREATMENT Medication Medication Name Sig Start Date Stop Date Notes Wegovy 1 MG/0.5ML 0.5 mL Subcutaneous once every 7 days for 30 days 04/30/2024 05/30/2024 Next Appt Details Provider Name:SOUTH Hardin, 05/23/2024 08:45:00 AM, [address] [place] [address], [phone], Provider Name:SOUTH Hardin, 07/03/2024 08:45:00 AM, [address] [place] [address], [phone], Progress Notes * MCCARTHYISAK SARGENTPADDYDOB: [birth year] (43 yo F)Acc No.[id number]:04/22/2024 Patient:??BASIL MCCARTHY :1980?Age:43 Y?Sex:Fe male Phone: Address:[address] [place] [phone] * Refills?? Start Wegovy Solution Auto-injector, 1 MG/0.5ML, Subcutaneous, 4, 0.5 mL, once every 7 days, 30 days, Refills=0 * true * Date:??
--- OUTSIDE RECORDS SUMMARY | 2024-05-14 08:14 | XMS_ITS | Patient Health Record ---
Author Organization [facility] Address [address] [place] [address] Care Team Providers Care Stable Helper Name Role Phone Ashley Patel Primary Care Provider Unavail able Betsy Solorio Unavailable [phone] Allergies Allergen (clinical drug ingredient) Drug/Non Drug Allergy documented on EMR Reaction Allergy Type Onset Date Status Latex Latex rash Allergy Active Reason For Referral No Information Medications Medication SIG (Take, Route, Fr equency, Duration) Notes Start Date End Date Status Feldene 20 MG 1 capsule with food Orally Once a day for 14 days 05/13/2021 Not-Taking Keflex 500 MG 1 capsule Orally demetrio ry 12 hrs for 7 days 10/19/2021 Active Immunizations Vaccine Route Administration Date Status Comme nts COVID-19 Pfizer BioNTech Vaccine Unknown 10/24/2020 Administered 1st 10/03/2020 Social History Tobacco Use: Social History Observation Description Date Details (start date - stop date) Former Smoker NA - NA Tobacco Use/Smoking Question Answer Notes Are you a: former smoker Additional Findings: Tobacco Non-User Current no n-smoker Tobacco use other than smoking: Question Answer Notes Are you an other tobacco user? No Problems Problem Type SNOMED Code ICD Code Onset Dates Problem Status W/U Status Risk Notes Problem 449021929444604 Hallux valgus (acquired), right foot (M20.11) Active confirmed Problem 423283972836001 Osteoarthritis o f right ankle and foot (M19.071) Active confirmed Plan Of Treatment Pending Test Test Name Order Date MRI : Foot, right 06/03/2021 X ray : Foot, right 3V 02/15/2021 X ray : Foot, right 3V 03/29/2021 39004, [id number]/INJECT, JOINT/BURSA 1 05/29/2020 Insurance Providers Payer Name Payer Address Payer Phone Subscriber Number Group Number Insured Name Patient Relationship to Insured Coverage Start Date Coverage End Date [facility] [address] [address] [place] [address] [id number] Catrina Monroe Self - patient is the insured Medical (General) History Medical History History ICD Code Anxiety Back,Hip,and Knee pain Broken bones Depression Headaches Chicken pox Surgical History Surgery Date(Month/Year) wisdom teeth extraction 01/2005 08/2011 anal fissures 08/2012
--- NOTE | 2024-05-14 08:26 | MHC.OFFVIS ---
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 Patient reports her pain has been present for while that has been getting worse that past few months. Her pain wraps around her whole knee and radiates into her calf. 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 She has constant pain that increases with walking. She is unable to squat or kneel and hears clicking with stair use. She has tried and failed knee braces as they are uncomfortable and slide down. Finds no relief ibuprofen. No recent tx. However 8 years ago she slid into 3rd brace injuring her knee. Her knee had filled up with fluid and she had it drained. 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 She states she has had pain for several years that has progressively gotten worse over the last few months. She has pain along the anterior portion of the knee which does extend into the medial aspect. She does have discomfort with stairs and also bending kneeling and squatting. She denies any direct locking or catching. No previous treatment in the past. She does have a knee brace that she has tried but does not feel as though it is supportive. [facility] Social History (Updated 05/14/24 @ 08:42 by AMY Snow) Patient Tobacco Use Status: Never used Tobacco Current occupation: [employer]- works from home Review of Systems Const All systems reviewed & are unremarkable except as noted in HPI and below Physical Exam Vital Signs: BMI result Body Mass Index 43.0 Const General: cooperative and no acute distress Orientation/consciousness: patient oriented x3 Resp Effort & Inspection: normal respiratory effort and able to speak in complete sentences Cardio Peripheral pulses: Peripheral pulses 2+ throughout Neuro General: patient oriented x3 Extrem Other: Left knee normal to inspection. There is tenderness along the medial aspect of the knee along with lateral retropatellar tenderness. Pain with patellar grind. Full range of motion. No ligamentous laxity. Calf supple nontender neurovascularly intact. Office Procedures AMB Joint Injection/Aspiration Joint Injection/Aspiration Primary Site: left knee Prep: site was prepped using aseptic technique, ethochloride spray was applied and injection warnings given Injected: 80 mg of, DepoMedrol, with 8 mL of, 1% plain lidocaine and in the joint Approach Used: anterolateral Procedure: The patient tolerated the procedure well and there was some relief with the local anesthesia Coding - Glenohumeral/Tronchanteric Bursa/Intraarticular Procedure code (CPT) selection complete Results Reviewed Results Reviewed: X-rays of the left knee obtained in the office today do show some osteophyte formation along the medial and lateral femoral condyles. She also has some lateralization of the patella. Assessment & Plan Assessment & Plan (1) Patellofemoral arthritis of left knee: Code(s): M17.12 - Unilateral primary osteoarthritis, left knee Category: Medical Plan We discussed options today which include physical therapy and cortisone injections. Injection of the left knee was performed today without complications. She tolerated the procedure well. An order for physical therapy was placed which she will begin. I explained to her the process of management which is conditioning and strengthening of the muscles surrounding the knee to help with offloading pressure. Avoiding activities that cause discomfort. Occasional injections along with anti-inflammatory use as needed. She is content with this plan and will see me back as needed. Orders: Orders XR knee LT 3V Today M25.562 - Pain in left knee PT Evaluation and Treatment Today M17.12 - Unilateral primary osteoarthritis, left knee XR knee RT 1V Today M25.561 - Pain in right knee Coding Level of Care Code New Pt Level 3 (40481) Complex EM visit Add On G2211 Diagnoses Patellofemoral arthritis of left knee M17.12 CPT Codes Coding - Joint 7: 94744 - Glenohumeral/Tronchanteric Bursa/Intraarticular ([id number])
[2024-05-14 08:29] VITALS: BMI 43.0
== END 2024-05-14 09:11 | disposition home or self-care (01) ==
PROVIDERS: PCP Internal Medicine; Visit Provider Physician Assistant
DX: M17.12 Unilateral primary osteoarthritis, left knee (principal)
CPT/HCPCS: 20610; 99203

== ENCOUNTER → 2024-05-14 08:12 | Outpatient (BNV) | payer OTHER, SELFPAY | PROVIDERS: Visit Provider Radiology Diagnostic Radiology | DX: M25.561 Pain in right knee (principal); M25.562 Pain in left knee | CPT/HCPCS: 73564 ==

== ENCOUNTER 2024-05-14 13:04 | Outpatient (REF) | payer OTHER, SELFPAY ==
--- NOTE | ~2024-05-14 | XR_ITS ---
EXAMINATION: XR KNEE, LEFT CLINICAL INFORMATION: M25.562 - Pain in left knee COMPARISON: None available. TECHNIQUE: Four views of the left knee. FINDINGS: Submitted for interpretation on May 22, 2024. No acute cortical disruption or malalignment. No lytic or blastic lesions. No suprapatellar bursa joint effusion. No subcutaneous emphysema. XR/XR knee LT 3V IMPRESSION: No acute fracture or dislocation. Electronically signed by: Jair Eagle MD 05/22/2024 07:22 AM [facility]
--- NOTE | ~2024-05-14 | XR_ITS ---
EXAMINATION: XR KNEE, RIGHT CLINICAL INFORMATION: M25.561 - Pain in right knee COMPARISON: None available. TECHNIQUE: Four views of the right knee. FINDINGS: Submitted for interpretation on May 22, 2024. .No acute cortical disruption or malalignment. No lytic or blastic lesions. No suprapatellar bursa joint effusion. No subcutaneous emphysema XR/XR knee RT 1V IMPRESSION: No acute fracture or dislocation. Electronically signed by: Jair Eagle MD 05/22/2024 07:21 AM [facility]
--- OUTSIDE RECORDS SUMMARY | 2024-05-16 14:11 | XMS_ITS ---
Author Organization [facility] Address [address] [place] [id number] Care Team Providers Care Merchandising Execution Associate Name Role Phone SOUTH CALDERON Primary Care Provider ALLERGIES Allergen (clinical [...] igarette smoker (1-9/day) Section Notes: Lives in [place] with [place], her EX and his mother. Encounters Encounter Location Date Provider Diagnosis [address] [id number] 03/19/2024 SOUTH CALDERON PLAN OF TREATMENT Next Appt Details Provider Name:SOUTH Hardin, 05/23/2024 08:45:00 AM, [address] [place] [address] MD, [phone], Provider Name:SOUTH Hardin, 07/03/2024 08:45:00 AM, [address] [place] [address] MD, [phone], Progress Notes * NISSA MCCARTHY: [birth year] (43 yo F)Acc No.[id number]:03/19/2024 Progress Note Patient:??BASIL MCCARTHY Provider:??South Calderon DNP :1980?Age:43 Y?Sex:Fe male Date:03/19/2024 Phone: Address:ANDREW AVILEZ [id number] Subjective: * Chief Complaints: * ?1. F/u meds, labs. * HPI: ?Patient Care Team:?Sausage Cooker:??[facility], Randall Hinds.? Providers/Specialists: Dentist - [facility] in [place]. * Medical History:??Hay fever, Anxiety, Chicken pox as a child, Depression, Fractured left ankle, GERD, Migraine headaches, Pneumonia, possible Thyroid issues. 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 * OB History:? History:?Total [...] ?Do you drink alcohol?: Socially. ?Lives in [place] with Daughter, her EX and his mother. * Allergies:??Seasonal: Cold L chet Symptoms - Allergy. Objective: Assessment: Plan: * Treatment: * Preventive Medicine:?Last CPE: 08/02/2023 @ [facility] Colonoscopy: 2013 [facility] had fissures repaired Endoscopy: No Covid Vac: Yes Boosters No Flu Vac: No. * Billing Information: * Visit Code:?? * Procedure Codes:?? * Sign off status: Pending * Provider:??South Calderon DNP Date:??1 05/19/2023 History and Physical Notes * HPI (History of Present Illness) Category Sub-Category Detail Notes Category Not es Patient Care Team Sausage Cooker: [facility] Providers/Special ists: Dentist - [facility] in [place]
--- OUTSIDE RECORDS SUMMARY | 2024-05-16 14:11 | XMS_ITS ---
Author Organization [facility] Address [address] [place] [phone] Care Team Providers Care Business Intelligence Developer Name Role Phone SOUTH JOEL Primary Care Provider REASON FOR VISIT RX dose MEDICATIONS Medication SIG (Take, Route, Fr equency, Duration) Notes Start Date End Date Status Wegovy 1 MG/0.5ML 0.5 mL Subcutaneous once every 7 days for 30 days 04/30/2024 05/30/2024 Active Encounters Encounter Location Date Provider Diagnosis [address] [id number] 04/22/2024 SOUTH JOEL PLAN OF TREATMENT Medication Medication Name Sig Start Date Stop Date Notes Wegovy 1 MG/0.5ML 0.5 mL Subcutaneous once every 7 days for 30 days 04/30/2024 05/30/2024 Next Appt Details Provider Name:SOUTH Hardin, 05/23/2024 08:45:00 AM, [address] [place] [address], [phone], Provider Name:SOUTH Hardin, 07/03/2024 08:45:00 AM, [address] [place] [address], [id number], Progress Notes * MCCARTHYISAK SARGENTPADDYDOB: [birth year] (43 yo F)Acc No.[id number]:04/22/2024 Patient:??BASIL MCCARTHY :1980?Age:43 Y?Sex:Fe male Phone: Address:[address] [place] [phone] * Refills?? Start Wegovy Solution Auto-injector, 1 MG/0.5ML, Subcutaneous, 4, 0.5 mL, once every 7 days, 30 days, Refills=0 * true * Date:??
--- OUTSIDE RECORDS SUMMARY | 2024-05-16 14:11 | XMS_ITS ---
Author Organization [facility] Address [address], [place] [phone] Care Team Providers Care Inbound Call Center Representative Name Role Phone SOUTH CALDERON Primary Care Provider ALLERGIES Allergen (clinical drug ingredient) Drug/Non Drug Allergy documented on EMR Reaction Allergy Type Onset Date Status Seasonal (uncoded) Cold Like Symptoms Allergy Active REASON FOR REFERRAL Reason Please refer to [facility] Diagnosis 1 Acute pain of left k nee (M25.562) Referral Organization [facility] Referring Provider First Name SOUTH Referring Provider Last Name MARYCRUZ Referring Provider Speciality Nurse Prac titioner Referred Organization [facility] Referred Address [address], [place],[phone], Referred Provider Specialty Orthopedic S urgery General Notes MIN ESPARZA 1 06/08/2023 02:51:36 PM >demographics, insurance info, referral and office note faxed to [facility] [place] [phone] Referral Priority Routine REASON FOR VISIT f/u [...] igarette smoker (1-9/day) Section Notes: Lives in [place] with [place], her EX and his mother. VITAL SIGNS Height 65 in 03/26/2024 Height-cm 165.1 cm 03/26/2024 Encounters Encounter Location Date Provider Diagnosis [address] [id number] 03/26/2024 SOUTH CALDERON Migraine with aura a [...] it affect on health status Discussed dietary choices/garbage stoker referral Intermittent fasting Increase exercise as tolerated [...] Please refer to [facility] , [address] [place], [place] [address], [phone], @[employer], Next Appt Details Follow Up: booked in Jun for CPE, Reason: Provider Name:SOUTH Hardin, 05/23/2024 08:45:00 AM, [address] [place], [place] [address], [phone], Provider Name:SOUTH Hardin, 07/03/2024 08:45:00 AM, [address] [place], [place] [address], [phone], Progress Notes * BASIL MCCARTHYDOB: [birth year] (43 yo F)Acc No.[id number]:03/26/2024 Progress Note Patient:??SHARI BASIL Provider:??South Calderon DNP :1980?Age:43 Y?Sex:Fe male Date:03/26/2024 Phone: Address:[address] [place], [place] [phone] Subjective: * Chief Complaints: * ?F/u meds, labs * HPI: ?Patient Care Team:?Positive Printer Operator:??[facility], [place].? Providers/Specialists: Dentist - [facility] in [place]. ?Visit info:? Basil presents by video for [...] appetite, depressed mood.? * Medical History:?? * Cover Marker History:?Menstrual history: ?LMP:??08/26/2023 ?Age of Menarche:??12 ?Periods :??every month, normal blood loss, lasts 4 days.?Last pap smear date??2011 neg per pt- due and obtained today 08/12/2023.?Last mammogram date??2020 neg per pt [facility]- referral sent.?? * OB History:? History:?Total pregnancies:??1 [...] ?Do you drink alcohol?: Socially. ?Lives in [place] with Daughter, her EX and his mother. [...] it affect on health status Discussed dietary choices/garbage stoker referral Intermittent fasting Increase exercise as tolerated? 3.??Hypothyroidism (acquired )?? Start Levothyroxine Sodium Tablet, 125 MCG, 1 tablet in the morning on an empty stomach, Orally, Once a day, 90 days, 90 Tablet, Refills 0.?LAB: THYROID PANEL WITH TSH (6012) Notes: TSH still elevated mildly, we will increase dose to 125 mcg and repeat labs in 8 weeks prior to CPE already booked for 07/09? 4.??Acute pain of left knee? ? Notes: Referral initiated to [facility] per patient's choice? Referral To:Orthopedic Surgery ?Reason:Please refer to [facility] 5.??Encounter to discuss manda t results?? [...] Codes:?? * Preventive Medicine:?Last CPE: 08/02/2023 @ [facility] ?Colonoscopy: 2012 [facility] had fissures repaired ?Endoscopy: No ?Covid Vac: Yes Boosters No ?Flu Vac: No. * Follow Up:??booked in Jun fo r CPE * Billing Information: * Visit Code:?? 34226 Office Visit, Est Pt., Level 4. * Procedure Codes:?? * Sign off status: Completed true * Provider:??South Calderon DNP Date:??1 05/26/2023 History and Physical Notes * HPI (History of Present Illness) Category Sub-Category Detail Notes Category Not es Patient Care Team Positive Printer Operator: [facility], Randall [place] Providers/Speciali sts: Dentist - [facility] [place] Visit info Basil present s by video [...] SOUTH CALDERON , Please refe r to [facility]
--- OUTSIDE RECORDS SUMMARY | 2024-05-16 14:11 | XMS_ITS | Patient Health Record ---
Author Organization [facility] Address [address] [place] [phone] Care Team Providers Care Layout Artist Name Role Phone PHYLICIA CALDERON Primary Care Provider ALLERGIES Allergen (clinical drug ingredient) Drug/Non Drug Allergy documented on EMR Reaction Allergy Type Onset Date Status Seasonal (uncoded) Cold Like Symptoms Allergy Active RESULTS Component Value Reference Range Notes CBC (COMPLETE BLOOD COUNT) W ITH DIFF Reviewed date:06/20/2023 03:08:15 PM Interpretation: Performing Lab:Testing performed or reported by [facility], a Service of [facility], [address] [place] [address] Keith Buck MD, Pivot Maker IA# [id number] Notes/Report: WBC 5.5 (4.0-11.0) K/MM3 RBC 4.27 [...] Interpretation: Performing Lab:Testing performed or reported by [facility], a Service of [facility], [address] [place] [address] Keith Buck MD, Pivot Maker CLIA# [id number] Notes/Report: REVERSE T3 18.1 Reference range: 9.2 to 24.1 Unit: ng/dL (NOTE) This test was developed and its performance characteristics determined by [facility]. It has not been cleared or approved by the Food and Drug Administration. Test performed at [address] [address] THYROID PANEL Reviewed date:06/21/2023 01:16:50 PM Interpretation: Performing Lab:Testing performed or reported by [facility], a Service of [facility], [address] [place] [address] Keith Buck MD, Pivot Maker IA# [id number] Notes/Report: FREE T4 1.42 (0.70-1.80) NG/DL TSH 3.02 (0.4-4.2) uIU/mL THINPREP TIS PAP W/REFL HPV mRNA E6/E7 (41100) Reviewed date:08/07/2023 01:29:16 PM Interpretation: Performing Lab:Panfilo, [facility] [address], [address] [place], [place] [id number] Fabian Marcus MD Notes/Report: NON-FASTING CLINICAL INFORMATION: None g iven LMP: 07/12/2023 PREV. PAP: 2012 PREV. BX: N/A SOURCE: Cervix STATEMENT OF ADEQUACY: Satisfactory for evaluation. Endocervical/transformation zone component absent. INTERPRETATION/RESULT: Cytology Results: Negative for intraepithelial lesion or malignancy. COMMENT: This Pap test has been evaluated with computer assisted technology. ARCHERY EQUIPMENT HAY SORTER: STEPH CASTANO(ASCP) CT screening location: [facility], [place] [address] Slide preparation performed at: [facility], [address] [place] [address] CLIA No. [id number] COMMENT EXPLANATORY NOTE: The Pap is a [...] Reviewed date:02/15/2024 09:18:55 AM Interpretation: Performing Lab:JOSE2, [facility] Quyleyzm507[address] Burton StreetMA[address] Thea Gibbs Notes/Report: NON-FASTING; NON-FASTING; NON-FASTING; NON-FASTING; NON-FAST FASTING:YES FASTING: YES THYROGLOBULIN ANTIBODIES 1 < or = 1 IU/mL THYROID PEROXIDASE ANTIBODIES 278 <9 IU/mL THYROID PANEL WITH TSH (7444 ) Reviewed date:02/14/2024 08:08:16 AM Interpretation: Performing Lab:NATALIIA, [facility] Aeursxoz[address] Thea Gibbs Notes/Report: NON-FASTING; NON-FASTING; NON-FASTING; NON-FASTING; NON-FAST FASTING:YES FASTING: YES T3 UPTAKE 30 22-35 % T4 (THYROXINE), TOTAL 7.8 5.1-11.9 mcg/dL FREE T4 INDEX (T7) 2.3 1.4-3.8 TSH 5.20 Reference Range > or = 20 Years 0.40-4.50 Ranges First trimester 0.26-2.66 Second trimester 0.55-2.73 Third trimester 0.43-2.91 CARDIO IQ(R) LIPID PANEL (91 716) Reviewed date:02/26/2024 04:36:13 PM Interpretation: Performing Lab:Jonas [facility] [place] [address], [address] [place], [place] [address]BlusxgqfpWJ[address] Marino Narvaez PhD,[facility] Notes/Report: NON-FASTING; NON-FASTING; NON-FASTING; NON-FASTING; NON-FAST FASTING:YES [...] LDL-C. Nilton SS et al. EMELIA. 2013;310(19): 1171-1905 (http://education.Skift.com/faq/LRL903) LDL-C is now calculated using the Nilton-Sosa calculation, which is a validated novel method providing better accuracy than the Friedewald equation in the estimation of LDL-C. Nilton SS et al. EMELIA. 2013;310(19): 0240-3563 (http://education.Skift.BioData/faq/JCM968) CHOL/HDLC RATIO 2.3 <5.0 calc NON HDL [...] a therapeutic option. IRON, TIBC AND FERRITIN OCLLEEN Hillman (5616) Reviewed date:02/14/2024 08:08:16 AM Interpretation: Performing Lab:NL2, [facility] [address] [place], [place] [address] Thea Gibbs Notes/Report: NON-FASTING; NON-FASTING; NON-FASTING; NON-FASTING; NON-FAST FASTING:YES FASTING: YES IRON, TOTAL 62 40-190 mcg/dL IRON BINDING CAPACITY 347 250-450 mcg/dL (jae c) % SATURATION 18 16-45 % (calc) FERRITIN 29 16-232 ng/mL ALBUMIN, RANDOM URINE W/CREA [facility]MA (6517) Reviewed date:02/15/2024 09:18:55 AM Interpretation: Performing Lab:NL2, [facility] Maowvjmb[address] Thea Gibbs Notes/Report: NON-FASTING; NON-FASTING; NON-FASTING; [...] patient to be within a diagnostic category. [facility] Kady ([address]) Reviewed date:02/14/2024 08:08:16 AM Interpretation: Performing Lab:2, [facility] Thea Gibbs Notes/Report: NON-FASTING; NON-FASTING; NON-FASTING; [...] Reviewed date:02/26/2024 04:36:13 PM Interpretation: Performing Lab:Jonas, Zzish.-[facility], [address], AntzgxnbwSL[address] Marino Narvaez PhD,[facility] Notes/Report: NON-FASTING; NON-FASTING; NON-FASTING; NON-FASTING; NON-FAST FASTING:YES FASTING: YES DIRECT LDL 92 <100 mg/dL Desirable range <100 mg/dL for primary prevention; <70 mg/dL for patients with CHD or diabetic patients with >= 2 CHD risk factors. CARDIO IQ(R) LIPOPROTEIN (a) (21203) Reviewed date:02/26/2024 04:36:13 PM Interpretation: Performing Lab:Jonas, [facility]ish[facility], [address], CcaavuzlfNC[address] Marino Narvaez PhD,[facility] Notes/Report: NON-FASTING; NON-FASTING; NON-FASTING; NON-FASTING; NON-FAST FASTING:YES FASTING: YES LIPOPROTEIN (a) <10 <75 nmol/L Risk: Optimal <75 nmol/L; Moderate 75-125 nmol/L; High >125 nmol/L. Cardiovascular event risk category cut points (optimal, moderate, high) are based on Serge Saunders [facility] 2017;69:692-711. CBC (INCLUDES DIFF/PLT) (639 9) Reviewed date:02/14/2024 08:08:16 AM Interpretation: Performing Lab:NL2, [facility] Osmouszn946 [facility] Thea Gibbs Notes/Report: NON-FASTING; NON-FASTING; NON-FASTING; NON-FASTING; [...] MPV 10.5 7.5-12.5 fL ABSOLUTE NEUTROPHILS [phone] cells/uL ABSOLUTE LYMPHOCYTES 5304 344-8447 cells/uL ABSOLUTE MONOCYTES 371 200-950 cells/uL ABSOLUTE EOSINOPHILS 130 15-500 cells/uL ABSOLUTE BASOPHILS 59 0-200 cells/uL NEUTROPHILS 69.1 LYMPHOCYTES 22.3 MONOCYTES 5.7 EOSINOPHILS 2.0 BASOPHILS 0.9 URINALYSIS, COMPLETE (5463) Reviewed date:02/14/2024 08:08:16 AM Interpretation: Performing Lab:NL2, [facility] [address] Thea Gibbs Notes/Report: NON-FASTING; NON-FASTING; NON-FASTING; [...] seen were reported. CARDIO IQ(R) HS CRP (67619) Reviewed date:02/26/2024 04:36:13 PM Interpretation: Performing Lab:Jonas, [facility], [address] HospitalXdvgdivkcRM[address] Marino Narvaez PhD,[facility] Notes/Report: NON-FASTING; NON-FASTING; NON-FASTING; NON-FASTING; NON-FAST FASTING:YES [...] for Disease Control and Prevention and the [place] [employer]. Circulation 2003; 107(3): 499-511. For [...] for Disease Control and Prevention and the [place] Heart Association. Circulation 2003; 107(3): 499-511. CARDIO IQ(R) HEMOGLOBIN A1c (20497) Reviewed date:02/26/2024 04:36:13 PM Interpretation: Performing Lab:Jonas, [facility] [place] [address], [address], ZlfrmkqidNK[address] Marino Narvaez PhD,[facility] Notes/Report: NON-FASTING; NON-FASTING; NON-FASTING; NON-FASTING; NON-FAST FASTING:YES [...] diagnosis of diabetes in children. According to [place] Diabetes Association (ADA) guidelines, hemoglobin A1c <7.0% represents optimal control in non- diabetic patients. Different metrics may apply to specific patient populations. Standards of Medical Care in Diabetes (ADA). This test was performed on the Akilah erwin c503 platform. Effective 07/18/2023, a change in test platforms from the Torres Kitchen Stewardess to the Akilah erwin c503 may have shifted HbA1c results compared to historical results. Based on laboratory validation testing conducted at [facility], the Akilah platform relative to the Torres [...] is not recommended. CARDIO IQ(R) APOLIPOPROTEIN EVAL (12294) Reviewed date:02/26/2024 04:36:13 PM Interpretation: Performing Lab:Jonas, [facility], [address], JzpwejeqiKH[address] Marino Narvaez PhD,[facility] Notes/Report: NON-FASTING; NON-FASTING; NON-FASTING; NON-FASTING; NON-FAST FASTING:YES FASTING: YES APOLIPOPROTEIN A1 145 >124 mg/dL Risk, Male: Optimal >= 115 mg/dL; High < 115 mg/dL; Risk, Female: Optimal >= 125 mg/dL; High <125 mg/dL; Cardiovascular event risk category cut points (optimal, high) are based on the AMORIS study Terrence [place] et al. J Capacitor Assembler Med. 2004;255:188-205. APOLIPOPROTEIN B 72 <90 mg/dL [...] AMORIS study, Chance G et al. J Capacitor Assembler Med. 2004;255:188-205. CARDIO IQ(R) INSULIN (93662) Reviewed date:02/26/2024 04:36:13 PM Interpretation: Performing Lab:Jonas [facility].-[address], [address] [address]MvcnqnidzET[address] Marino Narvaez PhD,[facility] Notes/Report: NON-FASTING; NON-FASTING; NON-FASTING; NON-FASTING; NON-FAST FASTING:YES FASTING: YES INSULIN 13.3 <18.5 uIU/mL VITAMIN B12/FOLATE, SERUM PA LAURA (7065) Reviewed date:02/14/2024 08:08:16 AM Interpretation: Performing Lab:NATALIIA, [facility] Z[address] [place], [place] [address] Thea Gibbs Notes/Report: NON-FASTING; NON-FASTING; NON-FASTING; NON-FASTING; NON-FAST FASTING:YES FASTING: YES VITAMIN B12 193 477-0824 pg/mL FOLATE, SERUM 13.5 Reference Range Low: <3.4 Borderline: 3.4-5.4 Normal: >5.4 CARDIO IQ(R) VITAMIN D, 25 H YDROXY (30746) Reviewed date:02/26/2024 04:36:13 PM Interpretation: Performing Lab:RIYA [facility]/[id number] [facility] , QhnkolmwiTC[address] Selvin Casarez M.D.,PhD Notes/Report: NON-FASTING; NON-FASTING; NON-FASTING; [...] ng/mL. For additional information, please refer to http://education.Tamoco/faq/UGQ038 (This link is being provided for informational/ educational purposes only.) VITAMIN D, 25-OH, D3 32 This test was developed and its analytical performance characteristics have been determined by [facility] [place], [place]. It has not been cleared or approved by the U.S. Food and Drug Administration. This assay has been validated pursuant to the CLIA regulations and is used for clinical purposes. VITAMIN D, 25-OH, D2 <4 This test was developed and its analytical performance characteristics have been determined by [facility] [place] [place]. It has not been cleared or approved by the U.S. Food and Drug Administration. This assay has been validated pursuant to the CLIA regulations and is used for clinical purposes. METHYLMALONIC ACID (62198) Reviewed date:02/19/2024 08:19:31 AM Interpretation: Performing Lab:RIYA [facility] [id number] [address] [place], QpakvzrnxLT[address] Selvin Casarez M.D.,PhD Notes/Report: NON-FASTING; NON-FASTING; NON-FASTING; [...] neural tube defects and intrauterine growth restriction. [facility] utilized Multi-Modal Decomposition (MMD) analysis to establish first and second trimester- specific MMA reference intervals in , as given below: MMA, First trimester (<13 wks gestation): 58-167 nmol/L MMA, Second trimester (13-23 wks gestation): 63-241 nmol/L This test was developed and its analytical performance characteristics have been determined by [facility]. It has not been cleared or approved by the FDA. This assay has been validated pursuant to the CLIA regulations and is used for clinical purposes. CARDIO IQ(R) FIBRINOGEN ANTI GEN, NEPHELOMETRY (72963) Reviewed date:02/26/2024 04:36:13 PM Interpretation: Performing Lab:Zaire, [facility], [address] HospitalXkiklttihNY[address] Marino Narvaez PhD,[facility] Notes/Report: NON-FASTING; NON-FASTING; NON-FASTING; NON-FASTING; NON-FAST FASTING:YES FASTING: YES FIBRINOGEN ANTIGEN, NEPHELOMETRY 377 180-350 mg/dL Risk: Optimal <350 mg/dL; High >=350 mg/dL. Reference Range: 180-350 mg/dL. Adult cardiovascular event risk category cut points (optimal, moderate, high) are based on Siemens BN II and BN ProSpec(TM) System package insert. T3 REVERSE, LC/MS/MS (25316) Reviewed date:02/26/2024 04:36:13 PM Interpretation: Performing Lab:Rishabh RITTER/[facility] [id number] [address], BvatvmfrhIV[address] Selvin Casarez M.D.,PhD Notes/Report: NON-FASTING; NON-FASTING; NON-FASTING; NON-FASTING; NON-FAST FASTING:YES FASTING: YES T3 REVERSE, LC/MS/MS 14 8-25 ng/dL This test was developed and its analytical performance characteristics have been determined by [facility] [place] [place]. It has not been cleared or approved by the U.S. Food and Drug Administration. This assay has been validated pursuant to the CLIA regulations and is used for clinical purposes. REASON FOR REFERRAL Reason please see order for US in DOS 07/04, thank you! Does not matter where Diagnosis 1 Acute pain of left k nee (M25.562) Referral Organization [facility] Referring Provider First Name PHYLICIA Referring Provider Last Name LEXINGTON Referring Provider Speciality Nurse Lola jaime Referred Organization [facility] Referred Address [address], [place],[id number],[place] Referred Provider Specialty Radiology General Notes Hayley Diaz 07/07 02:32:50 PM >US scheduled for 07/11/23 @ 12:45 at [facility] ([facility] Pt called and notified. Order faxed to [phone] Referral Priority Routine Reason Please refer to KAYLYN , does have a cyst and may need to be drained, see US report to attach. Thank you! Please refer to KAYLYN Graf will not see her (see me for more info) Diagnosis 1 Patellar tendinitis, left knee (M76.52) Referral Organization [facility] Referring Provider First Name PHYLICIA Referring Provider Last Name [place] Referring Provider Speciality Nurse Lola jaime Referred Organization [facility] Referred Address [address], [place],[id number],[place] Referred Provider Specialty Orthopedic S urgery General Notes MIN ESPARZA 0 07/24/2023 11:09:21 AM >appt request, demographics, referral, office note and ultrasound results faxwed to KAYLYN [phone], MIN ESPARZA 09/01/2023 08:37:11 AM >KAYLYN response: patient needs to contact billing prior to being able to schedule an appt with them Referral Priority Urgent Reason Please see order for mammo in DOS 08/01 Diagnosis 1 Encounter for screen ing mammogram for breast cancer (Z12.31) Referral Organization [facility] Referring Provider First Name PHYLICIA Referring Provider Last Name L[place] Referring Provider Speciality Nurse Lola jaime Referred Organization [facility] Referred Address [address] [facility], [place],[place] Referred Provider Specialty Mammography Screening Center General Notes ISAIASANNETTEMIN 0 08/03/2023 08:35:04 AM >demographics, insurance info, order and office note [place] [facility] [phone] Referral Priority Routine Reason Please refer to [facility] Diagnosis 1 Acute pain of left k nee (M25.562) [facility] Referring Provider First Name PHYLICIA Referring Provider Last Name MARYCRUZ Referring Provider Speciality Nurse Lola jaime [facility] Referred Address [address] [place], [place] [address],[id number], Referred Provider Specialty Orthopedic S urgery General Notes ANNETTE ESPARZAAIL 1 06/08/2023 02:51:36 PM >demographics, insurance info, referral and office note faxed [facility] [phone] Referral Priority Routine MEDICATIONS Medication SIG (Take, [...] igarette smoker (1-9/day) Section Notes: Lives in [place] with Da ughter, her EX and his mother. Lives in [place] with Da ughter, her EX and his mother. Lives in [place] with Da ughter, her EX and his mother. Lives in [place] with Da ughter, her EX and his mother. Lives in [place] with Da ughter, her EX and his mother. Lives in [place] with Da ughter, her EX and his mother. Lives in [place] with Da ughter, her EX and his mother. Lives in [place] with Da ughter, her EX and his mother. Lives in [place] with Da ughter, her EX and his mother. Lives in [place] with Da ughter, her EX and his mother. Lives in [place] with Da ughter, her EX and his mother. Lives in [place] with Da ughter, her EX and his mother. Lives in [place] with Da ughter, her EX and his mother. Lives in [place] with Da ughter, her EX and his mother. PROBLEMS Problem Type ICD Code Onset Dates Problem Status W/U Status Risk SNOMED Code Notes Problem Morbid obesity (E66.01) Active confirmed Morbid obesity (041214888) Problem Migraine with aura and without status migrainosus, not intractable (G43.109) Active confirmed Migraine with aura (6949624) Problem Hypothyroidism (acquired) (E03.9) Active confirmed Hypothyroidism (09395153) VITAL SIGNS Heart Rate 68 /min 02/13/2024 Oximetry 98 % 02/13/2024 Height-cm 165.1 cm 03/26/2024 Blood pressure diastolic 82 mm Hg 02/13/2024 Weight-kg 145.65 kg 02/13/2024 Height 65 in 03/26/2024 Blood pressure systolic 126 mm Hg 02/13/2024 Weight 321.1 lbs 02/13/2024 BMI 53.43 kg/m2 02/13/2024 Encounters Encounter Location Date Provider Diagnosis [address] [id number] 03/14/2024 PHYLICIA CALDERON [address] [id number] 03/19/[address] [id number] 06/05/2023 PHYLICIA CALDERON Morbid obesity E66.0 1 and Hypothyroidism (acquired) E03.[address] [id number] 06/26/2023 PHYLICIA CALDERON Hypothyroidism (acquired) E03.9 ; Morbid obesity E66.01 and Encounter to discuss test results Z71.[address] [id number] 07/04/2023 PHYLICIA CALDERON Acute pain of left knee M25.[address] [id number] 07/20/2023 PHYLICIA CALDERON Patellar tendinitis, left knee M76.[address] [id number] 08/02/2023 PHYLICIA CALDERON Encounter for genera l adult medical examination with abnormal findings Z00.01 ; Encounter for screening examination for mental health and behavioral disorders, unspecified Z13.30 ; Pap smear for cervical cancer screening Z12.4 ; Migraine with aura and without status migrainosus, not intractable G43.109 ; Hypothyroidism (acquired) E03.9 ; Morbid obesity E66.01 and Encounter for screening mammogram for breast cancer Z12.[address] [id number] 09/05/2023 PHYLICIA CALDERON Morbid obesity E66.0 1 ; Effusion, left knee M25.462 and Pain in right ankle and joints of right foot M25.[address] [id number] 02/13/2024 PHYLICIA CALDERON Hypothyroidism (acquired) E03.9 ; Migraine with aura and without status migrainosus, not intractable G43.109 ; Morbid obesity E66.01 and Acute pain of left knee M25.[address] [id number] 03/26/2024 PHYLICIA CALDERON Migraine with aura a nd without status migrainosus, not intractable G43.109 ; Morbid obesity E66.01 ; Hypothyroidism (acquired) E03.9 ; Acute pain of left knee M25.562 and Encounter to discuss test results Z71.[address] [id number] 02/13/2024 PHYLICIA MARYCRUZ Morbid obesity E66.0 1 ; Hypothyroidism (acquired) E03.9 ; Migraine with aura and without status migrainosus, not intractable G43.109 ; Acute pain of left knee M25.562 ; Effusion, left knee M25.462 ; Pain in right ankle and joints of right foot M25.571 and Abnormal results of function studies of other organs and systems R94.[address] [id number] 04/22/2024 PHYLICIA CALDERON ASSESSMENTS Encounter Date Diagnosis [...] and coordination of care. Curt Wilson BSN, DIRECT SERVICE PROFESSIONAL student saw the patient and formulated the [...] coordination of care. I, Curt Shalypin, BSN, DIRECT SERVICE PROFESSIONAL student saw the patient and formulated the note under direct supervision of Dr. Phylicia Calderon, LUTHER. 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 She is active [...] coordination of care. 08/02/2023 Other Sharon Wilson, FARM GENERAL MANAGER student saw the patient and formulated the [...] (7444) 03/26/2024 Next Appt Details Provider Name:PHYLICIA URBIO Hardin, 05/23/2024 08:45:00 AM, [address] [place], [place] [address], [id number], Provider Name:PHYLICIA Hardin, 07/03/2024 08:45:00 AM, [address] [place], [place] [address], [id number], Insurance Providers Payer Name Payer Address Payer Phone Subscriber Number Group Number Insured Name Patient Relationship to Insured Coverage Start Date Coverage End Date [facility] [address] [address] [place] [address] [id number] BASIL MCCARTHY Self - patient is the insured [facility] [address] [place] [address] [id number] BASIL MCCARTHY Self - patient is the insured MEDICAL (GENERAL) HISTORY Medical History History ICD Code hay fever anxiety chicken pox as a child depression fractured left ankle GERD migraine headaches pneumonia possible Thyroid issues Surgical History Surgery Date(Month/Year) 2012 tonsillectomy 1987
--- OUTSIDE RECORDS SUMMARY | 2024-05-16 14:11 | XMS_ITS | Patient Health Record ---
Author Organization 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 (M19.071) Active confirmed Plan Of Treatment Pending Test Test Name Order Date MRI : Foot, right 06/03/2021 X ray : Foot, right 3V 02/15/2021 X ray : Foot, right 3V 03/29/2021 86329, [id number]/INJECT, JOINT/BURSA 1 05/29/2020 Insurance Providers Payer Name Payer Address Payer Phone Subscriber Number Group Number Insured Name Patient Relationship to Insured Coverage Start Date Coverage End Date [facility] [address] [address] [place] [address] [phone] [id number] Catrina Monroe Self - patient is the insured Medical (General) History Medical History History ICD Code Anxiety Back,Hip,and Knee pain Broken bones Depression Headaches Chicken pox Surgical History Surgery Date(Month/Year) wisdom teeth extraction 01/2005 08/2011 anal fissures 08/2012
== END 2024-05-14 13:05 | disposition home or self-care (01) ==
LOC: HO.HOSX 13:04
PROVIDERS: Visit Provider Physician Assistant
DX: M25.562 Pain in left knee (principal); M25.561 Pain in right knee; M17.12 Unilateral primary osteoarthritis, left knee
CPT/HCPCS: 20610; 73560; 73562; J1010; J2003

== ENCOUNTER 2024-07-12 07:53 | Outpatient (RCR) | payer OTHER, SELFPAY ==
--- NOTE | 2024-06-04 17:15 | MHC.PT.EP ---
[employer] [place] Office [place] Office [place] Office [address] Olga Rojas [address] [phone] F: [phone] F: [phone] F: [phone] F: [phone] Physical Therapy Plan of Care Date of Evaluation: 06/04/24 Date of Surgery: Diagnosis: L knee pain, OA. Assessment: Pt is a 43 y/o female referred to PT for eval and treat of L knee pain/ OA which is resulting in decreased tolerance for negotiating stairs, walking a mile, performing squatting activities and heavy HH chores secondary to TTP of medial and posterior aspect of L knee, decreased L LE and knee strength, chronic L knee swelling and pain. Pt is deemed an appropriate candidate to receive skilled PT services to address their physical impairments in order to improve their functional ability. Frequency and Duration: The patient will be seen 2 x/ wk x 4 wks. Short Term Goals: Initiate home program. Pt will no longer TTP of her posterior L knee. Warehouse Team Member Goals: I with home program. Improve L knee Ext MMT by at least 1/2 MMT grade. Improve L glute med by at least 1/2 MMT grade. Improve LEFI outcome by at least 9 points. Treatment Plan: Modalities to reduce pain, spasms and effusion. Manual therapy to restore motion and function. Therapeutic exercise to improve strength and flexibility. Neuromuscular re-education for posture and balance. Therapeutic activities to return to functional activities of daily living. Electronically signed by: Kashmir Santiago PT. Please sign and return to therapist. Thank you for your referral.
== END 2024-07-12 11:50 | disposition home or self-care (01) ==
LOC: HO.PT 07:53
PROVIDERS: PCP Registered Nurse; Visit Provider Physician Assistant
DX: M17.12 Unilateral primary osteoarthritis, left knee (principal)
CPT/HCPCS: 97035; 97110; 97112; 97140; 97161; 97530

== ENCOUNTER 2024-07-23 07:56 | Outpatient (AMB) | payer OTHER, SELFPAY ==
[2024-07-23 07:59] VITALS: BMI 43.0
--- NOTE | 2024-07-23 07:59 | A.OFFVIS_ITS ---
Vital Signs 07/23/24 07:59 Height 5 ft 10 in Weight 300 lb BMI 43.0 Intake Visit Reasons: OV- Left knee pain s/p PT Intake Note: Catrina is a 44 year old female who presents today for a follow up of left knee pain s/p injection on 05/14/24. Patient was referred to PT her last visit, states she completed her P.T sessions and is still having pain. Allergies latex Allergy (Verified 07/23/24 08:02) Rash Medication List - Last Reconciled 07/23/24 by Kojo Landry PA-C atogepant (Qulipta) 60 mg PO DAILY levothyroxine 125 mcg PO DAILY semaglutide (weight loss) (Wegovy) mg subcut ubrogepant (Ubrelvy) 50 mg PO DAILY HPI HPI OV- Left knee pain s/p PT: Details: 44 yo female returns to the office for continued left knee pain. She states the injection helped for just a few days and with physical therapy she did not notice much relief. She does have some continued anterior and medial and lateral knee pain. She has difficulty performing daily activities due to discomfort. [facility] Social History Patient Tobacco Use Status: Never used Tobacco Current occupation: [employer]- works from home Review of Systems Const All systems reviewed & are unremarkable except as noted in HPI and below Physical Exam Vital Signs: BMI result Body Mass Index 43.0 Const General: cooperative and no acute distress Orientation/consciousness: patient oriented x3 Resp Effort & Inspection: normal respiratory effort and able to speak in complete sentences Cardio Peripheral pulses: Peripheral pulses 2+ throughout Neuro General: patient oriented x3 Extrem Other: Left knee normal to inspection. There is tenderness along the medial aspect of the knee along with lateral retropatellar tenderness. Pain with patellar grind. Full range of motion. No ligamentous laxity. Audible clunk with Leah's. Calf supple nontender neurovascularly intact. Assessment & Plan Assessment & Plan (1) Patellofemoral arthritis of left knee: Code(s): M17.12 - Unilateral primary osteoarthritis, left knee Category: Medical (2) Internal derangement of left knee: Code(s): M23.92 - Unspecified internal derangement of left knee Category: Medical Plan Given her ongoing pain and discomfort with daily activities and clinical exam findings an MRI of the left knee has been ordered to further evaluate the extent of the meniscus and surrounding structures. Eyes send her a prescription for Celebrex to the pharmacy to take twice a day for 2 weeks to see if this helps with her discomfort. Once the scan is complete I will contact her to discuss the next step in her treatment. Orders: Orders MR knee LT wo con Today M17.12 - Unilateral primary osteoarthritis, left knee Medications: New celecoxib (Celebrex) 200 mg PO BID 60 caps 3RF 30 days Coding Level of Care Code Est Pt Level 3 (98302) Complex EM visit Add On G2211 Diagnoses Patellofemoral arthritis of left knee M17.12 Internal derangement of left knee M23.92
--- OUTSIDE RECORDS SUMMARY | 2024-07-23 08:09 | XMS_ITS | Patient Health Record ---
Author Organization [facility] Address [address] [place] [address] Care Team Providers Care Analytical Tech Name Role Phone Ashley Patel Primary Care Provider Unavail able Betsy Solorio Unavailable [phone] Allergies Allergen (clinical drug ingredient) Drug/Non Drug [...] Problem Status W/U Status Risk Notes Problem [id number] Hallux valgus (acquired), right foot (M20.11) Active confirmed Problem 577094845958505 Osteoarthritis o f right ankle and foot (M19.071) Active confirmed Plan Of Treatment Pending Test Test Name Order Date MRI : Foot, right 06/03/2021 X ray : Foot, right 3V 02/15/2021 X ray : Foot, right 3V 03/29/2021 [id number], [id number]/[id number], JOINT/BURSA 1 05/29/2020 Insurance Providers Payer Name Payer Address Payer Phone Subscriber Number Group Number Insured Name Patient Relationship to Insured Coverage Start Date Coverage End Date [facility] [address] [address] [place] [address] [id number] Catrina Monroe Self - patient is the insured Medical (General) History Medical History History ICD Code Anxiety Back,Hip,and Knee pain Broken bones Depression Headaches Chicken pox Surgical History Surgery Date(Month/Year) wisdom teeth extraction 01/2005 08/2011 anal fissures 08/2012
--- OUTSIDE RECORDS SUMMARY | 2024-07-23 08:09 | XMS_ITS ---
Author Organization [facility], [facility] Address [address], [place] [id number] Care Team Providers Care Substitute Nurse Name Role Phone SOUTH CALDERON Primary Care Provider [phone] REASON FOR VISIT CPE Encounters Encounter Location Date Provider Diagnosis [address] [id number] 07/03/2024 SOUTH CALDERON PLAN OF TREATMENT No Information Progress Notes * BASIL MCCARTHYDOB: [birth year] (44 yo F)Acc No.[id number]:07/03/2024 Progress Note Patient:??BASIL MCCARTHY Provider:??South Calderon DNP :1980?Age:43 Y?Sex:Fe male Date:07/03/2024 Phone: Address:[address] [place], [place] [phone] Subjective: * Chief Complaints: * ?1. CPE. * Medical History:?? Objective: Assessment: Plan: * Treatment: Care Plan: * Problems:?? * Billing Information: * Visit Code:?? * Procedure Codes:?? * Sign off status: Pending * Provider:??South Calderon DNP Date:??0 07/03/2024
--- OUTSIDE RECORDS SUMMARY | 2024-07-23 08:09 | XMS_ITS ---
Author Organization [facility], [facility] Address [address] [place] [id number] Care Team Providers Care Supervisor Dry Cleaning Name Role Phone SOUTH JOEL Primary Care Provider REASON FOR VISIT refill/labs MEDICATIONS Medication SIG (Take, Route, Frequency, Duration) Notes Start Date End Date Status Levothyroxine Sodium 125 MCG 1 tablet in the morning on an empty stomach Orally Once a day for 90 days 03/26/2024 Active Encounters Encounter Location Date Provider Diagnosis [facility], [address] [id number] 06/20/2024 SOUTH JOEL Hypothyroidism (acquired) E03.9 ASSESSMENTS Encounter Date Diagnosis Assessment Notes Treatment Notes Treatment Clinical Notes Section Notes 06/20/2024 Hypothyroidism (acquired) (ICD-10 - E03.9) PLAN OF TREATMENT Medication Medication Name Sig Start Date Stop Date Notes Levothyroxine Sodium 125 MCG 1 tablet in the morning on an empty stomach Orally Once a day for 90 days 03/26/2024 Progress Notes * BASIL MCCARTHYDOB: [birth year] (43 yo F)Acc No.[id number]:06/20/2024 Patient:??BASIL MCCARTHY :1980?Age:43 Y?Sex:Fe male Phone: Address:[address] [place] [address] * Refills?? Refill Levothyroxine Sodium Tablet, 125 MCG, Orally, 90, 1 tablet in the morning on an empty stomach, Once a day, 90 days, Refills=3 * true * Date:??
--- OUTSIDE RECORDS SUMMARY | 2024-07-23 08:10 | XMS_ITS ---
Author Organization [facility], [facility] Address [address] [place] [phone] Care Team Providers Care Milled Lumber Grader Name Role Phone SOUTH JOEL Primary Care Provider REASON FOR VISIT Refills MEDICATIONS Medication SIG (Take, Route, Fr equency, Duration) Notes Start Date End Date Status Wegovy 1.7 MG/0.75ML 0.75 mL Subcutaneou s once every 7 days as directed for 30 days 06/27/2024 07/27/2024 Active Wegovy 2.4 MG/0.75ML 0.75 mL Subcutaneou s once every 7 days as directed for 30 days 06/27/2024 07/27/2024 Active Encounters Encounter Location Date Provider Diagnosis [facility], [address] [id number] 06/26/2024 SOUTH JOEL PLAN OF TREATMENT Medication Medication Name Sig Start Date Stop Date Notes Wegovy 1.7 MG/0.75ML 0.75 mL Subcutaneou s once every 7 days as directed for 30 days 06/27/2024 07/27/2024 Wegovy 2.4 MG/0.75ML 0.75 mL Subcutaneou s once every 7 days as directed for 30 days 06/27/2024 07/27/2024 Progress Notes * MCCARTHYISAK SARGENTPADDYDOB: [birth year] (43 yo F)Acc No.[id number]:06/26/2024 Patient:??BASIL MCCARTHY :1980?Age:43 Y?Sex:Fe male Phone: Address:[address] [place] [address] * Refills?? Start Wegovy Solution Auto-injector, 1.7 MG/0.75ML, Subcutaneous, 4, 0.75 mL, once every 7 days as directed, 30 days, Refills=1 Start Wegovy Solution Auto-injector, 2.4 MG/0.75ML, Subcutaneous, 4, 0.75 mL, once every 7 days as directed, 30 days, Refills=5 * true * Date:??
== END 2024-07-23 08:49 | disposition home or self-care (01) ==
LOC: HO.HOS 07:56
PROVIDERS: PCP Registered Nurse; Visit Provider Physician Assistant
DX: M17.12 Unilateral primary osteoarthritis, left knee (principal); M23.92 Unspecified internal derangement of left knee
CPT/HCPCS: 99213; G2211

== ENCOUNTER → 2024-07-23 07:56 | Outpatient (BNVA) | payer OTHER, SELFPAY | PROVIDERS: PCP Registered Nurse; Visit Provider Physician Assistant ==

== ENCOUNTER 2024-08-07 09:52 | Outpatient (REF) | payer OTHER, SELFPAY ==
--- NOTE | ~2024-08-07 | MR_ITS ---
EXAMINATION: MRI LEFT KNEE WITHOUT CONTRAST HISTORY: M17.12 - Unilateral primary osteoarthritis, left knee COMPARISON: Correlation is made with plain films of the left knee dated 05/14/2024. TECHNIQUE: Coronal T1 and fat-suppressed proton density, sagittal proton density and fat-suppressed proton density, and axial fat suppressed T2 weighted MR images of the left knee were obtained. FINDINGS: Bone marrow: There is diffuse increase in bone marrow signal intensity within the metaphyses of the distal femur prominent proximal tibia, and proximal fibula. Findings likely represent red marrow reconversion. Joint effusion: There is no joint effusion. Lafleur's cyst: There is no Lafleur's cyst. Articular cartilage: There is moderate osteoarthritis of the patellofemoral compartment with cartilage loss and subchondral marrow changes, particularly involving the lateral facet. Articular cartilage of the medial and lateral compartments is preserved. Muscles/soft tissues: The visualized muscles demonstrate normal signal intensity. Anterior cruciate ligament: Intact Posterior cruciate ligament: Intact Medial collateral ligament: The posterior horn is smaller than expected. There is mild fraying and irregularity of this superior surface of the posterior horn. A definite discrete tear is not identified. Lateral collateral ligament: Intact Medial meniscus: Intact Lateral meniscus: Intact Flexor mechanism: The popliteus, gastrocnemius, and hamstring tendons are intact. Quadriceps tendon: Intact Patellar tendon: Intact Patellar retinacula: Intact MR/MR knee LT wo con IMPRESSION: 1. Moderate osteoarthritis of the patellofemoral compartment. 2. Mild fraying and irregularity of the superior surface of the posterior horn of the medial meniscus. No discrete tear is identified. 3. Probable red marrow reconversion, as described. Electronically signed by: Viktor Lundberg MD 08/07/2024 01:24 PM EDT
--- OUTSIDE RECORDS SUMMARY | 2024-08-07 11:13 | XMS_ITS ---
Author Organization [facility], [facility] Address [address] [place], [place] [id number] Care Team Providers Care Striper Machine Name Role Phone SOUTH CALDERON Primary Care Provider [phone] REASON FOR VISIT CPE Encounters Encounter Location Date Provider Diagnosis [address] [id number] 07/03/2024 SOUTH CALDERON PLAN OF TREATMENT No Information Progress Notes * BASIL MCCARTHYDOB: [birth year] (44 yo F)Acc No.[id number]:07/03/2024 Progress Note Patient:??BASIL MCCARTHY Provider:??South Calderon DNP :1980?Age:43 Y?Sex:Fe male Date:07/03/2024 Phone: Address:[address] [place], [place] [phone] Subjective: * Chief Complaints: * ?1. CPE. * Medical History:?? Objective: Assessment: Plan: * Treatment: Care Plan: * Problems:?? * Billing Information: * Visit Code:?? * Procedure Codes:?? * Sign off status: Pending * Provider:??South Calderon DNP Date:??0 07/03/2024
--- OUTSIDE RECORDS SUMMARY | 2024-08-07 11:13 | XMS_ITS | Patient Health Record ---
Author Organization [facility] Address [address] [place] [address] Care Team Providers Care Modular Set Crew Member Name Role Phone Ashley Patel Primary Care Provider Unavail able Betsy Solorio Unavailable [phone] Allergies Allergen (clinical drug ingredient) Drug/Non Drug [...] Problem Status W/U Status Risk Notes Problem [id number] Hallux valgus (acquired), right foot (M20.11) Active confirmed Problem 721876956704862 Osteoarthritis o f right ankle and foot (M19.071) Active confirmed Plan Of Treatment Pending Test Test Name Order Date MRI : Foot, right 06/03/2021 X ray : Foot, right 3V 02/15/2021 X ray : Foot, right 3V 03/29/2021 [id number], [id number], JOINT/BURSA 1 05/29/2020 Insurance Providers Payer Name Payer Address Payer Phone Subscriber Number Group Number Insured Name Patient Relationship to Insured Coverage Start Date Coverage End Date [facility] [address] [address] [place] [id number] Catrina Monroe Self - patient is the insured Medical (General) History Medical History History ICD Code Anxiety Back,Hip,and Knee pain Broken bones Depression Headaches Chicken pox Surgical History Surgery Date(Month/Year) wisdom teeth extraction 01/2005 08/2011 anal fissures 08/2012
--- OUTSIDE RECORDS SUMMARY | 2024-08-07 11:14 | XMS_ITS | Clinical Summary ---
Author Organization [address] [place] [address] Address [address] [place] [address] Phone Care Team Providers Care Trigonometry Teacher Name Role Phone Keren Mathtews Primary Care Provider [phone] Surgical History Surgery Date Site/Laterality Comments TONSILLECTOMY PROCEDURE: HISTORICAL TONSILLECTOMY Medical History Medical History Date Comments Other acne DX:Other acne Obesity, unspecified DX:Obesity, unspecified Anxiety state, unspecified 09/13/2006 DX:An xiety state, unspecified Family History Medical History Relation Name Comments Other: parkinsons disease Aunt 1 Other: status post angioplasty Father Diabetes Maternal Grandmother colon c ancer Other: alive and well Mother Relation Name Status Comments Aunt 1 Aunt 2 Father Maternal Grandmother Mother Social History Tobacco Use Types Packs/Day Years Used Date Smoking Tobacco: Never Alcohol Use Standard Drinks/Week Comments No 0 (1 standard drink = 0.6 oz pur e alcohol) Comments Unknown Sex and Gender Information Value Date Recorded Sex Assigned at Not on file Legal Sex Female 6:14 PM EST Gender Identity Not on file Sexual Orientation Not on file Obstetrics History Plan of Treatment Upcoming Encounters Date Type Department Care Team (Late st Contact Info) Description 08/27/2024 8:00 AM EDT Consult Gastroenterology - [address] [phone] Ellen Almodovar, COLLAR TURNER OPERATOR [address] [address] Health Maintenance Due Date Last Done Comments Breast Cancer Screening 1981 Hepatitis B Vaccines (1 of 3 - 19+ 3-dose series) 2000 Cervical Cancer Screening: P ap Smear 2002 DTaP,Tdap,and Td Vaccines (2 - Td or Tdap) 02/17/2010 02/18/2000 COVID-19 Vaccine (1 - 2023-2 5 season) 2024 Influenza Vaccine (#1) 2024 02/14/2007 Cholesterol Screening (Lipid Panel) 07/26/2024 Depression Screening 07/26/2024 HIV Screening 07/26/2024 Hepatitis C Screening 07/26/2024 Social Influencers of Health Screening 07/26/2024 HIB Vaccines Aged Out No longer eligi ble based on patient's age to complete this topic HPV Vaccines Aged Out No longer eligi ble based on patient's age to complete this topic Hepatitis A Vaccines Aged Out No long er eligible based on patient's age to complete this topic IPV Vaccines Aged Out No longer eligi ble based on patient's age to complete this topic MMR Vaccines Aged Out No longer eligi ble based on patient's age to complete this topic Meningococcal ACWY Vaccine Aged Out N o longer eligible based on patient's age to complete this topic Meningococcal B Vacine Aged Out No lo nger eligible based on patient's age to complete this topic Pneumococcal Vaccine: Pediat rics (0 to 5 Years) and At-Risk Patients (6 to 64 Years) Aged Out No longer eligi ble based on patient's age to complete this topic RSV Immunization Patients Un noe 20 months Aged Out No longer eligible b ased on patient's age to complete this topic Varicella Vaccines Aged Out No longer eligible based on patient's age to complete this topic Insurance [facility] Care Teams Trigonometry Teacher Relationship Specialty Start Date End Date Keren Matthews [address] [place] [id number] PCP - General Family Medicine 07/26/24
--- OUTSIDE RECORDS SUMMARY | 2024-08-07 11:14 | XMS_ITS ---
Author Organization [facility], [facility] Address [address] [place] [phone] Care Team Providers Care Desilverizer Name Role Phone SOUTH JOEL Primary Care Provider [phone] REASON FOR VISIT Refills MEDICATIONS Medication SIG (Take, Route, Fr equency, Duration) Notes Start Date End Date Status Wegovy 1.7 MG/0.75ML 0.75 mL Subcutaneou s once every 7 days as directed for 30 days 06/27/2024 07/27/2024 Active Wegovy 2.4 MG/0.75ML 0.75 mL Subcutaneou s once every 7 days as directed for 30 days 06/27/2024 07/27/2024 Active Encounters Encounter Location Date Provider Diagnosis [facility], [address] [id number] 06/26/2024 SOUTH JOEL PLAN OF TREATMENT Medication Medication Name Sig Start Date Stop Date Notes Wegovy 1.7 MG/0.75ML 0.75 mL Subcutaneou s once every 7 days as directed for 30 days 06/27/2024 07/27/2024 Wegovy 2.4 MG/0.75ML 0.75 mL Subcutaneou s once every 7 days as directed for 30 days 06/27/2024 07/27/2024 Progress Notes * MCCARTHYISAK SARGENTPADDYDOB: [birth year] (43 yo F)Acc No.[id number]:06/26/2024 Patient:??BASIL MCCARTHY :1980?Age:43 Y?Sex:Fe male Phone: Address:[address] [place] [address] * Refills?? Start Wegovy Solution Auto-injector, 1.7 MG/0.75ML, Subcutaneous, 4, 0.75 mL, once every 7 days as directed, 30 days, Refills=1 Start Wegovy Solution Auto-injector, 2.4 MG/0.75ML, Subcutaneous, 4, 0.75 mL, once every 7 days as directed, 30 days, Refills=5 * true * Date:??
== END 2024-08-07 09:53 | disposition home or self-care (01) ==
LOC: HO.MRI 09:52
PROVIDERS: Visit Provider Physician Assistant
DX: M17.12 Unilateral primary osteoarthritis, left knee (principal)
CPT/HCPCS: 73721

== ENCOUNTER → 2024-08-07 09:52 | Outpatient (BNV) | payer OTHER, SELFPAY | PROVIDERS: Visit Provider Radiology Diagnostic Radiology | DX: M17.12 Unilateral primary osteoarthritis, left knee (principal) | CPT/HCPCS: 73721 ==

== ENCOUNTER 2024-08-16 09:44 | Outpatient (AMB) | payer OTHER, SELFPAY ==
--- NOTE | 2024-08-16 09:48 | A.OFFVIS_ITS ---
Vital Signs 08/16/24 09:50 Height 5 ft 10 in Weight 300 lb BMI 43.0 Intake Visit Reasons: OV LT Knee MRI review Intake Note: Catrina is a 44 year old female who presents today for an MRI review of left knee knee. Patient reports her pain has increased a little since her last visit. States no relief with taking celebrex for 2 weeks. Allergies latex Allergy (Verified 08/16/24 09:52) Rash Medication List - Last Reconciled 08/16/24 by Kojo Landry PA-C atogepant (Qulipta) 60 mg PO DAILY levothyroxine 125 mcg PO DAILY ondansetron mg PO DAILY semaglutide (weight loss) (Wegovy) mg subcut ubrogepant (Ubrelvy) 50 mg PO DAILY HPI HPI OV LT Knee MRI review: Details: 44-year-old female returns to the office today for a follow-up left knee MRI review. She states she continues to have pain along the lateral aspect of the knee. She has discomfort with stairs and prolonged walking. She has had cortisone injections without relief. She has also attended physical therapy with minimal benefit. [facility] Social History Patient Tobacco Use Status: Never used Tobacco Current occupation: [employer]- works from home Review of Systems Const All systems reviewed & are unremarkable except as noted in HPI and below Physical Exam Vital Signs: BMI result Body Mass Index 43.0 Const General: cooperative and no acute distress Orientation/consciousness: patient oriented x3 Resp Effort & Inspection: normal respiratory effort and able to speak in complete sentences Cardio Peripheral pulses: Peripheral pulses 2+ throughout Neuro General: patient oriented x3 Extrem Other: Left knee normal to inspection. There is tenderness along the medial aspect of the knee along with lateral retropatellar tenderness. Pain with patellar grind. Full range of motion. No ligamentous laxity. Negative Leah's. Calf supple nontender neurovascularly intact. Results Reviewed Results Reviewed: MR knee LT wo con IMPRESSION: 1. Moderate osteoarthritis of the patellofemoral compartment. 2. Mild fraying and irregularity of the superior surface of the posterior horn of the medial meniscus. No discrete tear is identified. 3. Probable red marrow reconversion, as described. Assessment & Plan Assessment & Plan (1) Patellofemoral arthritis of left knee: Code(s): M17.12 - Unilateral primary osteoarthritis, left knee Category: Medical Plan: I reviewed the extent of the MRI with the patient along with treatment options consist of continued physical therapy or at least a home exercise program to maintain her exercises. Injections could help relieve occasional discomfort every couple of months if warranted. I also discussed with her the details and benefits of gel injections which she is open to. She should avoid activities such as stair climbing and excessive bending kneeling or squatting that cause pain. She would like to consider the gel therefore we will obtain approval and contact her once we are ready to book. Coding Level of Care Code Est Pt Level 3 (08687) Complex EM visit Add On G2211 Diagnoses Patellofemoral arthritis of left knee M17.12
[2024-08-16 09:50] VITALS: BMI 43.0
--- OUTSIDE RECORDS SUMMARY | 2024-08-16 10:50 | XMS_ITS | Clinical Summary ---
Author Organization [address] [place] [address] Address [address] [place] [address] Phone Care Team Providers Care Solar Thermal Technician Name Role Phone Keren Matthews Primary Care Provider [phone] Surgical History Surgery Date Site/Laterality Comments TONSILLECTOMY [...] 8:00 AM EDT Consult Gastroenterology - [address] [phone] Ellen Almodovar, ELECT EQUIP MAINT ENG [address] [address] Health Maintenance Due Date Last Done Comments Breast Cancer Screening 1981 Hepatitis B Vaccines (1 of 3 - 19+ 3-dose series) 2000 Cervical Cancer Screening: P ap Smear 2002 DTaP,Tdap,and Td Vaccines (2 - Td or Tdap) 02/17/2010 02/18/2000 COVID-19 Vaccine (1 - 2023-2 5 season) 2024 Cholesterol Screening (Lipid Panel) 07/26/2024 Depression Screening 07/26/2024 HIV Screening 07/26/2024 Hepatitis C Screening 07/26/2024 Social Influencers of Health Screening 07/26/2024 Influenza Vaccine (Season Ended) 2025 02/15/20 07 HIB Vaccines Aged Out No longer eligi [...] patient's age to complete this topic Insurance [facility] Care Teams Solar Thermal Technician Relationship Specialty Start Date End Date Keren Matthews: [id number] [place] [place] [id number] PCP - General Family Medicine 07/26/24
--- OUTSIDE RECORDS SUMMARY | 2024-08-16 10:50 | XMS_ITS | Patient Health Record ---
Author Organization [facility] Rima gloria [facility] Address [address] [place] [phone] Care Team Providers Care Plaster Foreman Name Role Phone PHYLICIA CALDERON Primary Care Provider ALLERGIES Allergen (clinical drug ingredient) Drug/Non Drug Allergy documented on EMR Reaction Allergy Type Onset Date Status Seasonal (uncoded) Cold Like Symptoms Allergy Active RESULTS Component Value Reference Range Notes THYROID PANEL WITH TSH (7444 ) Reviewed date:06/20/2024 07:51:10 AM Interpretation: Performing Lab:NLAd.IQ, [facility] Center[facility]fess[facility] Plantão[address] [place], [place] [address] Thea Gibbs Notes/Report: NON-FASTING FASTING:NO FASTING: NO T3 UPTAKE 31 22-35 % T4 (THYROXINE), TOTAL 10.5 5.1-11.9 mcg/dL FREE T4 INDEX (T7) 3.3 1.4-3.8 TSH 1.49 Reference Range > or = 20 Years 0.40-4.50 Ranges First trimester 0.26-2.66 Second trimester 0.55-2.73 Third trimester 0.43-2.91 THYROID PEROXIDASE AND THYRO GLOBULIN ANTIBODIES (7260) Reviewed date:02/15/2024 09:18:55 AM Interpretation: Performing Lab:NLAd.IQ, [facility] EnglandPass[facility] Thea Gibbs Notes/Report: NON-FASTING; NON-FASTING; NON-FASTING; NON-FASTING; NON-FAST FASTING:YES FASTING: YES THYROGLOBULIN ANTIBODIES 1 < or = 1 IU/mL THYROID PEROXIDASE ANTIBODIES 278 <9 IU/mL THYROID PANEL WITH TSH (7444 ) Reviewed date:02/14/2024 08:08:16 AM Interpretation: Performing Lab:NLAd.IQ, [facility] CenterN[facility] Thea Gibbs Notes/Report: NON-FASTING; NON-FASTING; NON-FASTING; NON-FASTING; NON-FAST FASTING:YES FASTING: YES T3 UPTAKE 30 22-35 % T4 (THYROXINE), TOTAL 7.8 5.1-11.9 mcg/dL FREE T4 INDEX (T7) 2.3 1.4-3.8 TSH 5.20 Reference Range > or = 20 Years 0.40-4.50 Ranges First trimester 0.26-2.66 Second trimester 0.55-2.73 Third trimester 0.43-2.91 CARDIO IQ(R) LIPID PANEL (91 716) Reviewed date:02/26/2024 04:36:13 PM Interpretation: Performing Lab:Jonas, [place] HeartPARCXMART TECHN[facility] Inc.-[place] [facility]PAR[facility]CHN[facility] Inc[address], [address], [place]pRL[address] Marino Narvaez PhD,[facility] Notes/Report: NON-FASTING; NON-FASTING; NON-FASTING; NON-FASTING; NON-FAST FASTING:YES [...] LDL-C. Nilton SS et al. EMELIA. 2013;310(19): 2748-0130 (http://education.IguanaFix.com/faq/MJA880) LDL-C is now calculated using the Nilton-Sosa calculation, which is a validated novel method providing better accuracy than the Friedewald equation in the estimation of LDL-C. Nilton SS et al. EMELIA. 2013;310(19): 5647-7534 (http://education.IguanaFix.com/faq/QES150) CHOL/HDLC RATIO 2.3 <5.0 calc NON HDL [...] Reviewed date:02/14/2024 08:08:16 AM Interpretation: Performing Lab:NL2, [facility] New EnglandAltitude Games[address] Thea Gibbs Notes/Report: NON-FASTING; NON-FASTING; NON-FASTING; NON-FASTING; NON-FAST FASTING:YES FASTING: YES IRON, TOTAL 62 40-190 mcg/dL IRON BINDING CAPACITY 347 250-450 mcg/dL (jae c) % SATURATION 18 16-45 % (calc) FERRITIN 29 16-232 ng/mL ALBUMIN, RANDOM URINE W/CREA EMMA (6517) Reviewed date:02/15/2024 09:18:55 AM Interpretation: Performing Lab:NL2, [facility] EnglandAltitude Games[address] Thea Gibbs Notes/Report: NON-FASTING; NON-FASTING; NON-FASTING; [...] patient to be within a diagnostic category. COMPREHENSIVE METABOLIC COLLEEN Hillman (30837) Reviewed date:02/14/2024 08:08:16 AM Interpretation: Performing Lab:NL2, [facility] EnglandAltitude Games[address] Thea Gibbs Notes/Report: NON-FASTING; NON-FASTING; NON-FASTING; [...] 23) Reviewed date:02/26/2024 04:36:13 PM Interpretation: Performing Lab:Zaire, [facility].[address] [place], [place] [address]egie [facility], [address], [place] [address] Marino Narvaez PhD,[facility] Notes/Report: NON-FASTING; NON-FASTING; NON-FASTING; NON-FASTING; NON-FAST FASTING:YES FASTING: YES DIRECT LDL 92 <100 mg/dL Desirable range <100 mg/dL for primary prevention; <70 mg/dL for patients with CHD or diabetic patients with >= 2 CHD risk factors. CARDIO IQ(R) LIPOPROTEIN (a) (76863) Reviewed date:02/26/2024 04:36:13 PM Interpretation: Performing Lab:Zaire [facility]ovalDo[facility].[address] [place], [place] [address]egie [facility], [address], TduwchclyMG[address] Marino Narvaez PhD,[facility] Notes/Report: NON-FASTING; NON-FASTING; NON-FASTING; NON-FASTING; NON-FAST FASTING:YES FASTING: YES LIPOPROTEIN (a) <10 <75 nmol/L Risk: Optimal <75 nmol/L; Moderate 75-125 nmol/L; High >125 nmol/L. Cardiovascular event risk category cut points (optimal, moderate, high) are based on Serge Saunders [facility] 2017;69:692-711. CBC (INCLUDES DIFF/PLT) (639 9) Reviewed date:02/14/2024 08:08:16 AM Interpretation: Performing Lab:NL2, [facility] Centerdel[facility] Thea Gibbs Notes/Report: NON-FASTING; NON-FASTING; NON-FASTING; [...] MPV 10.5 7.5-12.5 fL ABSOLUTE NEUTROPHILS 4492 [phone] cells/uL ABSOLUTE LYMPHOCYTES 0388 502-6135 cells/uL ABSOLUTE MONOCYTES 371 200-950 cells/uL ABSOLUTE EOSINOPHILS 130 15-500 cells/uL ABSOLUTE BASOPHILS 59 0-200 cells/uL NEUTROPHILS 69.1 LYMPHOCYTES 22.3 MONOCYTES 5.7 EOSINOPHILS 2.0 BASOPHILS 0.9 URINALYSIS, COMPLETE (3328) Reviewed date:02/14/2024 08:08:16 AM Interpretation: Performing Lab:NL2, [facility] EnglandAltitude Games[address] Thea Gibbs Notes/Report: NON-FASTING; NON-FASTING; NON-FASTING; [...] seen were reported. CARDIO IQ(R) HS CRP (36890) Reviewed date:02/26/2024 04:36:13 PM Interpretation: Performing Lab:Jonas, [place] [facility].-[facility] HospitalPARCXMART TECH[facility] [address], [address], [place]PG[address] Marino Narvaez PhD,[facility] Notes/Report: NON-FASTING; NON-FASTING; NON-FASTING; NON-FASTING; NON-FAST FASTING:YES FASTING: YES HS CRP 10.4 <1.0 mg/L Reference Range: Optimal <1.0 mg/L, according to Karri PS et al. Endocr Pract.2017;23(Suppl 2):1-87. The AHA/CDC [...] inflammation. The AHA/CDC recommendations are based on Bowie TA, Lou GA, Harjeet RW, et al. Markers of inflammation and cardiovascular disease: application to clinical and public health practice: A statement for healthcare professionals from the Centers for Disease Control and Prevention and the [place] Heart Association. Circulation 2003; 107(3): 499-511. For [...] may be associated with infection and inflammation. Jamir TA, Lou GA, Harjeet RW, et al. Markers of inflammation and cardiovascular disease: application to clinical and public health practice: A statement for healthcare professionals from the Centers for Disease Control and Prevention and the [place] Heart Association. Circulation 2003; 107(3): 499-511. CARDIO IQ(R) HEMOGLOBIN A1c (81621) Reviewed date:02/26/2024 04:36:13 PM Interpretation: Performing Lab:Jonas, [place] [facility] [employer] [address], [address], FvnmtkjvxZL[address] Marino Narvaez PhD,[facility] Notes/Report: NON-FASTING; NON-FASTING; NON-FASTING; NON-FASTING; NON-FAST FASTING:YES [...] diagnosis of diabetes in children. According to [place] Diabetes Association (ADA) guidelines, hemoglobin A1c <7.0% represents optimal control in non- diabetic patients. Different metrics may apply to specific patient populations. Standards of Medical Care in Diabetes (ADA). This test was performed on the Akilah erwin c503 platform. Effective 07/18/2023, a change in test platforms from the Torres Client Consultant to the Akilah erwin c503 may have shifted HbA1c results compared to historical results. Based on laboratory validation testing conducted at [facility], the Akilah platform relative to the Torres [...] is not recommended. CARDIO IQ(R) APOLIPOPROTEIN EVAL (48739) Reviewed date:02/26/2024 04:36:13 PM Interpretation: Performing Lab:Jonas, [facility], [address], [place]E[address] Marino Narvaez PhD,[facility] Notes/Report: NON-FASTING; NON-FASTING; NON-FASTING; NON-FASTING; NON-FAST FASTING:YES FASTING: YES APOLIPOPROTEIN A1 145 >124 mg/dL Risk, Male: Optimal >= 115 mg/dL; High < 115 mg/dL; Risk, Female: Optimal >= 125 mg/dL; High <125 mg/dL; Cardiovascular event risk category cut points (optimal, high) are based on the AMORIS study Wallharvey G et al. J Registration Rep Med. 2004;255:188-205. APOLIPOPROTEIN B 72 <90 mg/dL [...] AMORIS study, Chance G et al. J Registration Rep Med. 2004;255:188-205. CARDIO IQ(R) INSULIN (48996) Reviewed date:02/26/2024 04:36:13 PM Interpretation: Performing Lab:Jonas, [facility].[address], [address], UzzbfmsgrHT[address] Marino Narvaez PhD,[facility] Notes/Report: NON-FASTING; NON-FASTING; NON-FASTING; NON-FASTING; NON-FAST FASTING:YES FASTING: YES INSULIN 13.3 <18.5 uIU/mL VITAMIN B12/FOLATE, SERUM PA LAURA (7065) Reviewed date:02/14/2024 08:08:16 AM Interpretation: Performing Lab:NL2, [facility] Q[address]in[address] [place], [place] [address] Thea Gibbs Notes/Report: NON-FASTING; NON-FASTING; NON-FASTING; NON-FASTING; NON-FAST FASTING:YES FASTING: YES VITAMIN B12 577 875-5290 pg/mL FOLATE, SERUM 13.5 Reference Range Low: <3.4 Borderline: 3.4-5.4 Normal: >5.4 CARDIO IQ(R) VITAMIN D, 25 H YDROXY (71785) Reviewed date:02/26/2024 04:36:13 PM Interpretation: Performing Lab:AMD, [facility] [facility] , CyeuceqxmOW[address] Selvin Casarez M.D.,PhD Notes/Report: NON-FASTING; NON-FASTING; NON-FASTING; [...] ng/mL. For additional information, please refer to http://education.Sparksfly Technologies.Nomadesk/faq/JRI544 (This link is being provided for informational/ educational purposes only.) VITAMIN D, 25-OH, D3 32 This test was developed and its analytical performance characteristics have been determined by [facility] [place], [place]. It has not been cleared or approved by the U.S. Food and Drug Administration. This assay has been validated pursuant to the CLIA regulations and is used for clinical purposes. VITAMIN D, 25-OH, D2 <4 This test was developed and its analytical performance characteristics have been determined by [facility] [place]. It has not been cleared or approved by the U.S. Food and Drug Administration. This assay has been validated pursuant to the CLIA regulations and is used for clinical purposes. METHYLMALONIC ACID (44623) Reviewed date:02/19/2024 08:19:31 AM Interpretation: Performing Lab:RIYA [facility] [id number] [place], AxcwenafqVV[address] Selvin Casarez M.D.,PhD Notes/Report: NON-FASTING; NON-FASTING; NON-FASTING; [...] neural tube defects and intrauterine growth restriction. [facility] utilized Multi-Modal Decomposition (MMD) analysis to establish first and second trimester- specific MMA reference intervals in , as given below: MMA, First trimester (<13 wks gestation): 58-167 nmol/L MMA, Second trimester (13-23 wks gestation): 63-241 nmol/L This test was developed and its analytical performance characteristics have been determined by [facility]. It has not been cleared or approved by the FDA. This assay has been validated pursuant to the CLIA regulations and is used for clinical purposes. CARDIO IQ(R) FIBRINOGEN ANTI GEN, NEPHELOMETRY (30862) Reviewed date:02/26/2024 04:36:13 PM Interpretation: Performing Lab:[facility]as [facility] [facility] [facility], [address], DrsvjbdnmCR[address] Marino Narvaez PhD,[facility] Notes/Report: NON-FASTING; NON-FASTING; NON-FASTING; NON-FASTING; NON-FAST FASTING:YES FASTING: YES FIBRINOGEN ANTIGEN, NEPHELOMETRY 377 180-350 mg/dL Risk: Optimal <350 mg/dL; High >=350 mg/dL. Reference Range: 180-350 mg/dL. Adult cardiovascular event risk category cut points (optimal, moderate, high) are based on Siemens BN II and BN ProSpec(TM) System package insert. T3 REVERSE, LC/MS/MS (12739) Reviewed date:02/26/2024 04:36:13 PM Interpretation: Performing Lab:RIYA [facility] [id number] [facility] [place], YkrcpeirsYY[address] Selvin Casarez M.D.,PhD Notes/Report: NON-FASTING; NON-FASTING; NON-FASTING; NON-FASTING; NON-FAST FASTING:YES FASTING: YES T3 REVERSE, LC/MS/MS 14 8-25 ng/dL This test was developed and its analytical performance characteristics have been determined by [facility] [place], [place]. It has not been cleared or approved by the U.S. Food and Drug Administration. This assay has been validated pursuant to the CLIA regulations and is used for clinical purposes. REASON FOR REFERRAL Reason Please refer to [facility] Diagnosis 1 Acute pain of left k nee (M25.562) [facility] Referring Provider First Name PHYLICIA Referring Provider Last Name PENN YAN Referring Provider Speciality Nurse Prac titioner Referred Organization [facility] Referred Address [address] [place] [phone], Referred Provider Specialty Orthopedic S urgery General Notes MIN ESPARZA 1 06/08/2023 02:51:36 PM >demographics, insurance info, referral and office note faxed to [facility] Orthopedics Dept. [phone] Referral Priority Routine MEDICATIONS Medication SIG (Take, Route, Frequency, Duration) Notes Start Date End Date Status Levothyroxine Sodium 125 MCG 1 tablet in the morning on an empty stomach Orally Once a day for 90 days 03/26/2024 Active Loratadine 10 MG 1 tablet Orally Once a day Not-Taking Nurtec 75 MG 1 tablet on the tong ue and allow to dissolve Orally Samples Not-Taking Saxenda 18 MG/3ML start with 0.6 mg/da y x 7 days, then increase dose by 0.6 mg/day every week until 3mg/day is reached Subcutaneous once daily in the morning on an empty stomach 06/05/2023 Not-Taking Saxenda 18 MG/3ML Subcutaneous 06/05/2023 Not-Taking Levothyroxine Sodium 100 MCG TAKE 1 TABLET BY MOUTH EVERY DAY IN THE MORNING ON EMPTY STOMACH FOR 90 DAYS for 90 Not-Taking Qulipta 60 MG 1 tablet Orally Once a day Samples Active Wegovy 0.5 MG/0.5ML 0.5 mL Subcutaneous Not-Taking Ubrelvy 50 MG 1 tablet as needed, may take second dose at least 2 hours after first dose up to 4 tablets per day as needed Orally Once a day Samples Active Vitamin D3 125 MCG (5000 UT) 1 capsule Orally Once a day Active Ondansetron 8 MG 1 tablet on the tong ue and allow to dissolve as needed Orally Once a day for 30 days 05/23/2024 Active ZyrTEC Allergy 10 MG 1 tablet Orally Onc e a day Active Pantoprazole Sodium 20 MG 1 tab Orally once a day at bedtime for 30 days 05/23/2024 Active Multi For Her Active Wegovy 2.4 MG/0.75ML 0.75 mL Subcutaneou s once every 7 days as directed for 90 days Active SOCIAL HISTORY Tobacco Use: Social History Observation [...] igarette smoker (1-9/day) Section Notes: Lives in [place] with [place], her EX and his mother. Lives in [place] with [place], her EX and his mother. Lives in [place] with [place], her EX and his mother. Lives in [place] with [place], her EX and his mother. Lives in [place] with Da xavier, her EX and his mother. Lives in [place] with Da rosiehter, her EX and his mother. Lives in [place] with Da rosiehter, her EX and his mother. Lives in [place] with Da rosiehter, her EX and his mother. Lives in [place] with Da rosiehter, her EX and his mother. Lives in [place] with Da rosiehter, her EX and his mother. Lives in [place] with Da rosiehter, her EX and his mother. Lives in [place] with Da rosiehter, her EX and his mother. Lives in [place] with Da rosiehter, her EX and his mother. Lives in [place] with Da rosiehter, her EX and his mother. Lives in [place] with Da rosiehter, her EX and his mother. PROBLEMS Problem Type ICD Code Onset Dates Problem Status W/U Status Risk SNOMED Code Notes Problem Morbid obesity (E66.01) Active confirmed Morbid obesity (378404286) Problem Migraine with aura and without status migrainosus, not intractable (G43.109) Active confirmed Migraine with aura (3939778) Problem Hypothyroidism (acquired) (E03.9) Active confirmed Hypothyroidism (32717987) VITAL SIGNS Heart Rate 68 /min 02/13/2024 Height-cm 165.1 cm 05/23/2024 Oximetry 98 % 02/13/2024 Blood pressure diastolic 82 mm Hg 02/13/2024 Weight-kg 145.65 kg 02/13/2024 Height 65 in 05/23/2024 Blood pressure systolic 126 mm Hg 02/13/2024 Weight 321.1 lbs 02/13/2024 BMI 53.43 kg/m2 02/13/2024 Encounters Encounter Location Date Provider Diagnosis [address] [id number] [facility] [address] [id number] [facility] [place] [address] [place] [id number] 07/03/2024 [facility], [address] [id number] 09/[facility] Morbid obesity E66.0 1 ; Effusion, left knee M25.462 and Pain in right ankle and joints of right foot M25.[address] [id number] 02/13/2024 PHYLICIA CALDERON Hypothyroidism (acquired) E03.9 ; Migraine with aura and without status migrainosus, not intractable G43.109 ; Morbid obesity E66.01 and Acute pain of left knee M25.[address] [id number] 03/26/2024 PHYLICIA CALDERON Migraine with aura a nd without status migrainosus, not intractable G43.109 ; Morbid obesity E66.01 ; Hypothyroidism (acquired) E03.9 ; Acute pain of left knee M25.562 and Encounter to discuss test results Z71.[address] [id number] 05/23/2024 PHYLICIA CALDERON Morbid obesity E66.0 1 ; Hypothyroidism (acquired) E03.9 ; Migraine with aura and without status migrainosus, not intractable G43.109 ; Nausea R11.0 and Heartburn R12 [address] [id number] 02/13/2024 PHYLICIA CALDERON Morbid obesity E66.0 1 ; Hypothyroidism (acquired) E03.9 ; Migraine with aura and without status migrainosus, not intractable G43.109 ; Acute pain of left knee M25.562 ; Effusion, left knee M25.462 ; Pain in right ankle and joints of right foot M25.571 and Abnormal results of function studies of other organs and systems R94.[address] [id number] 04/22/[address] [id number] 06/20/2024 PHYLICIA CALDERON Hypothyroidism (acquired) E03.[address] [id number] 06/26/2024 PHYLICIA CALDERON ASSESSMENTS Encounter Date Diagnosis Assessment Notes Treatment Notes Treatment Clinical Notes Section Notes 09/05/2023 Effusion, left knee (ICD-10 - M25.462) [...] and coordination of care. Curt Wilson BSN, [employer] student saw the patient and formulated the note under direct supervision of Dr. Phylicia Calderon, LUTHER. 02/13/2024 Migraine with aura and without status migrainosus, not intractable (ICD-10 - G43.109) [facility] has stopped working, we will try quilipta [...] as indicated, doing really well with quilipta/ubrelvy! 05/23/2024 Morbid obesity (ICD-10 - E66.01) Discussed weight and it affect on health status Discussed dietary choices/nutrition ist referral Intermittent fasting Increase exercise as tolerated 05/23/2024 Hypothyroidism (acquired) (ICD-10 - E03.9) Due for repeat TSH as we adjusted her levothyroxine in March. 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 She is active [...] therapeutic response to heat therapy and exercises. 02/13/2024 Acute pain of left knee (ICD-10 - M25.562) We had referred her to [facility] back in July-she has not been able to get an appointment. We will refer to Sebastián hitchcock for evaluation of her chronic left knee pain. 02/13/2024 Acute pain of left knee (ICD-10 - M25.562) 05/23/2024 Nausea (ICD-10 - R11.0) as r/t wegovy, will RX PRN zofran, may cut tab in half if desired 03/26/2024 Acute pain of left knee (ICD-10 - M25.562) Referral initiated to [facility] per patient's choice 05/23/2024 Heartburn (ICD-10 - R12) as r/t wegovy SE-will send in PRN omeprazole as this has been most effective in past. Explained this is not for correction use, if correction use is required we will find an alternative that is safer for predatory animal exterminator use 03/26/2024 Encounter to discuss test results (ICD-10 - Z71.2) All labs were reviewed and the results were explained to the patient in detail. Total time with patient >30 minutes which includes education and coordination of care. 02/13/2024 Effusion, left knee (ICD-10 - M25.462) 02/13/2024 Pain in right ankle and joints of right foot (ICD-10 - M25.571) 02/13/2024 Abnormal results of function studies of other organs and systems (ICD-10 - R94.8) 02/13/2024 Other Total time spen t with patient 45 minutes which includes face to face visit, education and coordination of care. 03/26/2024 Other Total time spen t with patient 34 minutes which includes face to face visit, education and coordination of care. 05/23/2024 Other Total time spen t with patient 33 minutes which includes face to face visit, education and coordination of care. 04/22/2024 Other CancelRx Respon se got Denied on 2024-05-23 09:15:20 for 'Wegovy 1 MG/0.5ML Solution Auto-injector'Pha rmacy Notes: Unable to cancel prescription; prescription was transferred to another pharmacy. No prior dispensing PLAN OF TREATMENT Pending Test Test Name Order Date MAMMOGRAM, SCREENING 08/02/2023 Ultrasound : Lower Extremity, left 07/04 Insurance Providers Payer Name Payer Address Payer Phone Subscriber Number Group Number Insured Name Patient Relationship to Insured Coverage Start Date Coverage End Date [facility] [address] [address] [place] [address] [id number] BASIL MCCARTHY Self - patient is the insured [facility] [address] [place] [address] [id number] BASIL MCCARTHY Self - patient is the insured MEDICAL (GENERAL) HISTORY Medical History History ICD Code hay fever anxiety chicken pox as a child depression fractured left ankle GERD migraine headaches pneumonia possible Thyroid issues Surgical History Surgery Date(Month/Year) 2011 tonsillectomy 1987
--- OUTSIDE RECORDS SUMMARY | 2024-08-16 10:50 | XMS_ITS | Patient Health Record ---
Author Organization [facility] Address [address] [place] [address] Care Team Providers Care Maintenance Machinist Name Role Phone Ashley Patel Primary Care Provider Unavail able Betsy Solorio Unavailable [phone] Allergies Allergen (clinical drug ingredient) Drug/Non Drug [...] Problem Status W/U Status Risk Notes Problem [id number] Hallux valgus (acquired), right foot (M20.11) Active confirmed Problem [id number] Osteoarthritis o f right ankle and foot (M19.071) Active confirmed Plan Of Treatment Pending Test Test Name Order Date MRI : Foot, right 06/03/2021 X ray : Foot, right 3V 02/15/2021 X ray : Foot, right 3V 03/29/2021 12508, [id number]/INJECT, JOINT/BURSA 1 05/29/2020 Insurance Providers Payer Name Payer Address Payer Phone Subscriber Number Group Number Insured Name Patient Relationship to Insured Coverage Start Date Coverage End Date [facility] [address] [address] [place] [address] [id number] Catrina Monroe Self - patient is the insured Medical (General) History Medical History History ICD Code Anxiety Back,Hip,and Knee pain Broken bones Depression Headaches Chicken pox Surgical History Surgery Date(Month/Year) wisdom teeth extraction 01/2005 08/2011 anal fissures 08/2012
--- OUTSIDE RECORDS SUMMARY | 2024-08-16 10:50 | XMS_ITS ---
Author Organization [facility] Address [address] [place] [id number] Care Team Providers Care Temporary Receptionist Name Role Phone [facility] Primary Care Provider [phone] REASON FOR VISIT Refills MEDICATIONS Medication SIG (Take, Route, Fr equency, Duration) Notes Start Date End Date Status Wegovy 1.7 MG/0.75ML 0.75 mL Subcutaneou s once every 7 days as directed for 30 days 06/27/2024 07/27/2024 Active Wegovy 2.4 MG/0.75ML 0.75 mL Subcutaneou s once every 7 days as directed for 30 days 06/27/2024 07/27/2024 Active Encounters Encounter Location Date Provider Diagnosis [facility], [address] [phone] 06/26/2024 [facility] PLAN OF TREATMENT Medication Medication Name Sig Start Date Stop Date Notes Wegovy 1.7 MG/0.75ML 0.75 mL Subcutaneou s once every 7 days as directed for 30 days 06/27/2024 07/27/2024 Wegovy 2.4 MG/0.75ML 0.75 mL Subcutaneou s once every 7 days as directed for 30 days 06/27/2024 07/27/2024 Progress Notes * MCCARTHYISAK SARGENTPADDYDOB: [birth year] (43 yo F)Acc No.[id number]:06/26/2024 Patient:??BASIL MCCARTHY :1980?Age:43 Y?Sex:Fe male Phone: Address:[address] [place] [id number] * Refills?? Start Wegovy Solution Auto-injector, 1.7 MG/0.75ML, Subcutaneous, 4, 0.75 mL, once every 7 days as directed, 30 days, Refills=1 Start Wegovy Solution Auto-injector, 2.4 MG/0.75ML, Subcutaneous, 4, 0.75 mL, once every 7 days as directed, 30 days, Refills=5 * true * Date:??
== END 2024-08-16 12:47 | disposition home or self-care (01) ==
LOC: HO.HOS 09:44
PROVIDERS: Visit Provider Physician Assistant
DX: M17.12 Unilateral primary osteoarthritis, left knee (principal)
CPT/HCPCS: 99213; G2211

== ENCOUNTER → 2024-08-16 09:44 | Outpatient (BNVA) | payer OTHER, SELFPAY | PROVIDERS: Visit Provider Physician Assistant ==

== ENCOUNTER 2024-09-27 08:11 | Outpatient (AMB) | payer OTHER, SELFPAY ==
[2024-09-27 08:19] VITALS: BMI 43.0
--- NOTE | 2024-09-27 08:19 | A.OFFVIS_ITS ---
Vital Signs 09/27/24 08:19 Height 5 ft 10 in Weight 300 lb BMI 43.0 Intake Visit Reasons: INJ- LT knee Durolane injection Intake Note: Catrina is a 44 year old female who presents today a left knee Durolane injection. Allergies latex Allergy (Verified 09/27/24 08:22) Rash Medication List - Last Reconciled 09/27/24 by Kojo Landry PA-C atogepant (Qulipta) 60 mg PO DAILY levothyroxine 125 mcg PO DAILY ondansetron mg PO DAILY semaglutide (weight loss) (Wegovy) mg subcut ubrogepant (Ubrelvy) 50 mg PO DAILY HPI HPI INJ- LT knee Durolane injection: Details: 44-year-old female presents today for left knee drilling injection. She states she has been going to the gym and exercising and feels her symptoms are improving. [facility] Social History Patient Tobacco Use Status: Never used Tobacco Current occupation: [employer]- works from home Review of Systems Const All systems reviewed & are unremarkable except as noted in HPI and below Physical Exam Vital Signs: BMI result Body Mass Index 43.0 Const General: cooperative and no acute distress Orientation/consciousness: patient oriented x3 Resp Effort & Inspection: normal respiratory effort and able to speak in complete sentences Cardio Peripheral pulses: Peripheral pulses 2+ throughout Neuro General: patient oriented x3 Extrem Other: Left knee normal to inspection. There is tenderness along the medial aspect of the knee along with lateral retropatellar tenderness. Pain with patellar grind. Full range of motion. No ligamentous laxity. Negative Leah's. Calf supple nontender neurovascularly intact. Office Procedures AMB Joint Injection/Aspiration Joint Injection/Aspiration Details: durolane Primary Site: left knee Prep: site was prepped using aseptic technique, ethochloride spray was applied and injection warnings given Injected: in the joint Approach Used: anterolateral Procedure: The patient tolerated the procedure well Coding 89924 - Glenohumeral/Tronchanteric Bursa/Intraarticular Procedure code (CPT) selection complete Assessment & Plan Assessment & Plan (1) Patellofemoral arthritis of left knee: Code(s): M17.12 - Unilateral primary osteoarthritis, left knee Category: Medical Plan: The patient did consent to move forward with the left knee durolane injection, which was tolerated well.? I recommended rest, ice and elevation and OTC antiinflammatories prn for discomfort. If symptoms persist over the next 6-8 weeks, they will contact our office, otherwise, prn Coding Level of Care Code Procedure Only Diagnoses Patellofemoral arthritis of left knee M17.12 CPT Codes Coding - Joint 7: 98398 - Glenohumeral/Tronchanteric Bursa/Intraarticular ([id number])
== END 2024-09-27 08:37 | disposition home or self-care (01) ==
LOC: HO.HOS 08:15
PROVIDERS: PCP Nurse Practitioner Family; Visit Provider Physician Assistant
DX: M17.12 Unilateral primary osteoarthritis, left knee (principal)
CPT/HCPCS: 20610

== ENCOUNTER → 2024-09-27 08:11 | Outpatient (BNVA) | payer OTHER, SELFPAY | PROVIDERS: PCP Nurse Practitioner Family; Visit Provider Physician Assistant | DX: M17.12 Unilateral primary osteoarthritis, left knee (principal) | CPT/HCPCS: 20610; J7318 ==